=== PATIENT | female | born 1990 | race Caucasian/White ===

== ENCOUNTER → 2018-04-06 09:59 | Outpatient (CLI) | payer OTHER, SELFPAY ==
--- NOTE | 2018-04-06 10:01 | MR_ITS ---
MR head/brain wo con HISTORY: Severe headache more on the right ITS.REASON: migraine ORDERING PHYSICIAN: Derrick Mattson PATIENT AGE: 28 years Comparison: 07/01/2015 TECHNIQUE: Standard multiplanar multiecho sequences are performed without contrast. FINDINGS: No midline shift, mass effect, intracranial hemorrhage, hydrocephalus, or acute infarction is evident. There is normal goff-white matter differentiation. No abnormal white matter signal intensity evident. The cerebellopontine angles, cerebellum, and brainstem are unremarkable. The pituitary, optic chiasm, and cerebellar tonsils have an unremarkable appearance. No sinus air-fluid level or mastoid effusion. No large aneurysm. Small aneurysms may not be detected with this technique may be better evaluated with MRA if clinically warranted. 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 IMPRESSION: Negative MRI of brain.
== END ==
PROVIDERS: Family Provider Family Medicine; PCP Physician Assistant; Visit Provider Nurse Practitioner Family
DX: G43.009 Migraine without aura, not intractable, without status migrainosus (principal)
CPT/HCPCS: 70551

== ENCOUNTER → 2018-11-18 16:18 | Outpatient (CLI) | payer BC, OTHER, SELFPAY ==
--- NOTE | 2018-11-18 16:19 | MM_ITS ---
MM Dig screening mamm BI w/CAD ORDERING PHYSICIAN : FELTON Philip PATIENT AGE: 28 years GENDER: Female COMPARISON: Only the previous studies available of 10/08/2017 kidney INDICATION: ITS.REASON: screening. No new complaints. Patient takes control pills. Positive family history: Mother with breast cancer age 40.... 2 sisters with breast cancer in her 30s. TECHNIQUE: Standard CC and MLO images were obtained. R2 CAD reviewed. FINDINGS: Slightly heterogeneous Moderately dense areas of breast tissue,. LEFT BREAST:There is slight relative increased density at superior breast on as well as area highlighted by CAD at the central breast but this is labeled X. Most likely summation shadow of tissue but does show a focal area of density measuring roughly 18 mm size. However in this patient with strong family history to be cautious with suggest follow-up spot views & ultrasound left breast, since this area appears slightly denser & more evident been previous. Could merely be projectional... RIGHT BREAST:No prominent new areas of concern. Only question subtle ovoid 9 mm density at the right retroareolar region cc view. Suspect more likely summation shadow but again because of the patient's strong family history would suggest including spot view cc right breast, along with and MLO view of the retroareolar region and superior right breast. Also suggest ultrasound since it is a useful compliment/augment mammography in areas of denser breast. .. IMPRESSION: ......... 1. Although no prominent/suspicious areas are identified... There are some subtle areas of density bilaterally which would benefit from additional views & bilateral breast ultrasound, to be cautious-particularly in view of the patient's strong family history LEFT BREAST. Area of slightly greater density at superior surface central breast labeled X, may be summation shadow but would benefit from additional views and ultrasound RIGHT BREAST no suspicious findings, only question a vague 9 mm ovoid area retroareolar region. More likely summation shadow BI-RADS Category: 0 Need Additional Imaging Evaluation RECOMMENDED FOLLOW-UP: IMM - IMMEDIATE FOLLOW-UP RECOMMENDED Bilateral spot views. Bilateral breast ultrasound (A letter has been sent to the patient regarding results of the study.)
== END ==
PROVIDERS: PCP Physician Assistant; Visit Provider Physician Assistant
DX: Z12.31 Encounter for screening mammogram for malignant neoplasm of breast (principal)
CPT/HCPCS: 77067

== ENCOUNTER → 2019-06-28 14:55 | Outpatient (CLI) | payer BC, SELFPAY ==
--- NOTE | 2019-06-28 14:56 | MM_ITS ---
PROCEDURE: MM DIG MAMM BI DX W/CAD CLINICAL INDICATION: abn follow-up possible asymmetric nodular density left breast mamm from Nov COMPARISON: [facility] DIG MAMM-SCREEN CUCO W/CAD from 10/08/2017 [facility] MM Dig screening mamm BI w/CAD from 11/18/2018 US BREAST RT COMPLETE from 06/28/2019 US BREAST LT COMPLETE from 06/28/2019 TECHNIQUE: Standard CC and MLO images were obtained. R2 CAD reviewed. FINDINGS: There is a diffusely dense and heterogenic parenchymal pattern lessening the sensitivity of mammography. There is a subtle area of architectural distortion and/or nodular density central portion of the left breast at approximately the 12 o'clock position approximately 3 cm deep to the nipple. It does not press out on spot compression MLO and CC views. It does appear to be somewhat less prominent on the 90 degree lateral view. Ultrasound examination performed the same date showed no definite ultrasound correlation. However in view the patient's strong family history of breast cancer I believe biopsy is indicated IMPRESSION: Dense echogenic parenchymal pattern with possible focal area of architectural distortion central portion left breast BI-RAD Category: 4 Suspicious Abnormality - Biopsy Considered FOLLOW-UP: BIO Biopsy Recommended (A letter has been sent to the patient regarding results of the study.) Dictated by: Dr. Leroy Glover MD 07/18/2019 20:24 Signed by: <Electronically signed by Dr. Leroy Glover MD in [place]> 07/18/2019 20:24
--- NOTE | 2019-06-28 15:44 | US_ITS ---
PROCEDURE: US BREAST RT COMPLETE CLINICAL INDICATION: abn mamm from Nov COMPARISON: No exams were available for comparison FINDINGS: Diffusely heterogenic echogenicity seen throughout the breast. There is no suspicious cystic or solid mass identified and there are no findings to suggest architectural distortion. There is a normal appearing node in the axilla. IMPRESSION: Negative ultrasound right breast Dictated by: Dr. Leroy Glover MD 07/18/2019 20:30 Signed by: <Electronically signed by Dr. Leroy Glover MD in [place]> 07/18/2019 20:30
--- NOTE | 2019-06-28 15:44 | US_ITS ---
PROCEDURE: US BREAST LT COMPLETE CLINICAL INDICATION: abn mamm from Nov COMPARISON: US BREAST RT COMPLETE from 06/28/2019 FINDINGS: Diffuse heterogenic echogenicity seen throughout the areas scanned in the breast. There is no definite suspicious cystic or solid mass and there are no definite findings to suggest architectural distortion. However in view of the fact that the asymmetric density left breast is not press out on the spot compression views and in view of the patient's strong family history of bleed biopsy is indicated IMPRESSION: Essentially negative targeted ultrasound left breast however for the reasons mentioned above I believe biopsy is indicated. Dictated by: Dr. Leroy Glover MD 07/18/2019 20:27 Signed by: <Electronically signed by Dr. Leroy Glover MD in [place]> 07/18/2019 20:27
== END ==
PROVIDERS: PCP Physician Assistant; Visit Provider Physician Assistant
DX: R92.8 Other abnormal and inconclusive findings on diagnostic imaging of breast (principal)
CPT/HCPCS: 76641; 77066

== ENCOUNTER → 2019-08-02 08:21 | Outpatient (CLI) | payer BC, SELFPAY | PROVIDERS: PCP Emergency Medicine; Visit Provider Emergency Medicine | DX: R92.8 Other abnormal and inconclusive findings on diagnostic imaging of breast (principal) ==

== ENCOUNTER → 2020-02-14 08:47 | Outpatient (CLI) | payer BC, SELFPAY ==
--- NOTE | 2020-02-14 08:47 | MM_ITS ---
PROCEDURE: MM DIG SCREENING MAMM BI W/CAD Digital Breast Tomosynthesis Included CLINICAL INDICATION: screening COMPARISON: [facility] DIG MAMM-SCREEN CUCO W/CAD from 10/08/2017 [facility] MM Dig screening mamm BI w/CAD from 11/18/2018 MM DIG MAMM BI DX W/CAD from 06/28/2019 TECHNIQUE: Standard CC and MLO images and 3D Tomosynthesis was obtained. R2 CAD reviewed. FINDINGS: History is given that the patient was scheduled for stereotactic breast biopsy of an area of nodularity in the left breast on previous mammogram. She returned 08/02/2019 for stereotactic biopsy and the nodule in question was not reproduced with additional imaging, and the stereotactic biopsy was therefore canceled. On today's exam breasts are dense. A new focal area of asymmetrical nodular density 1.2 x 1.5 centimeters is seen in the retroareolar region of the left breast on the MLO views only. It is 3.7 centimeters deep to the anterior skin surface and lies just superior to the nipple line in the general vicinity of previously described asymmetrical nodular density. MLO Tomosynthesis images 8-31 show the density. This is not confirmed with certainty on the CC views. It is possible dense tissue in the lateral breast obscures a lesion. The appearance of the right breast is stable. Additional cone compression views of the left breast in the MLO and CC projections and 90 degree medial to lateral images of left breast are recommended with ultrasound targeted to the mammographic abnormality. IMPRESSION: BI-RAD Category: 0 Need Additional Imaging Evaluation (A letter has been sent to the patient regarding results of the study.) Dictated by: Anders Dial 02/14/2020 10:03 Electronically signed by Anders Dial in [place] 02/14/2020 10:03
== END ==
PROVIDERS: PCP Physician Assistant; Visit Provider Nurse Practitioner Family
DX: Z12.31 Encounter for screening mammogram for malignant neoplasm of breast (principal)
CPT/HCPCS: 77063; 77067

== ENCOUNTER → 2020-02-29 14:13 | Outpatient (CLI) | payer BC, SELFPAY ==
--- NOTE | 2020-02-29 14:13 | US_ITS ---
PROCEDURE: MM DIG MAMM DX UNILAT LT CAD Digital Breast Tomosynthesis Included CLINICAL INDICATION: abnormal mamm, follow-up abnormal mammogram COMPARISON: [facility] MM Dig screening mamm BI w/CAD from 11/18/2018 US BREAST LT COMPLETE from 06/28/2019 MM DIG MAMM BI DX W/CAD from 06/28/2019 MM DIG SCREENING MAMM BI W/CAD from 02/14/2020 US BREAST LT COMPLETE from 02/29/2020 TECHNIQUE: Spot compression views along with breast FINDINGS: There is average fibroglandular tissue. The area of asymmetric density does appear to compress out is fibroglandular tissue. No malignant appearing mass or malignant-appearing microcalcification. Left breast ultrasound: Small cyst is present 2 o'clock at 4 mm. No solid suspicious lesions evident. IMPRESSION: Asymmetric density is felt to be due to overlapping fibroglandular tissue. BI-RAD Category: 3 Probably Benign Finding Short Term Follow-up FOLLOW-UP: 6M 6Month Follow-up (A letter has been sent to the patient regarding results of the study.) Dictated by: Russell Mendoza MD 02/29/2020 15:41 Electronically signed by Russell Mendoza MD in [place] 02/29/2020 15:41
== END ==
PROVIDERS: PCP Physician Assistant; Visit Provider Nurse Practitioner Family
DX: R92.8 Other abnormal and inconclusive findings on diagnostic imaging of breast (principal)
CPT/HCPCS: 76641; 77061; 77065; G0279

== ENCOUNTER 2020-11-27 09:28 | Emergency (ER) | payer BC, SELFPAY ==
[2020-11-27 09:28] VITALS: BP 136/64; PULSE 91; RESP 16; TEMP 37.2; O2SAT 98; BMI 27.3
--- NOTE | 2020-11-27 09:49 | HMH.EDUTC ---
[facility] [place] Disposition Clinical Impression: Viral upper respiratory illness, Encounter for laboratory testing for COVID-19 virus Disposition: Home, Self-Care Condition on Discharge: Good Instructions: Cough, DI for Cough -- Adult, DI for COVID-19 (Suspected or Confirmed ), Coronavirus Disease 2019, Preventing the Spread of Coronavirus Discharge Instructions Additional Instructions: *Monitor Temp, Over the counter Motrin or Tylenol as directed/as needed Tylenol every 4 hours and Motrin every 6 hours (as long as your family doctor has told you that you can take it) for fever or pain. and straight to ER if unable to lower temp less than 101.0 after medication given *Warm salt water gargles may help to soothe the throat *Throat Lozenges *Warm fluids like tea with honey may help to soothe the throat *Sleep elevated *Humidifier/Vaporizer *Bromfed may cause drowsiness. Know how it effects you (your child) before driving, caring for small child, or sending your child to school. Not other antihistamines/allergy medications while taking bromfed Your throat swab was sent for culture. Those results are typically sent to your primary care. Be sure to follow up in 2-3 days with your family doctor/primary care physician if no improvement so they can review those result and treat if necessary. If you don?t have a primary care doctor, I recommend you get one but in the mean time, you will have to return to a walk in clinic Follow up IMMEDIATELY for new or worsening symptoms or no Noticeable improvement over the next 48-72 hours. 911 for difficulty breathing or swallowing You were tested for today for COVID19 your test result should be back in the next 24-48 hours, you may call to the [facility] to see if your test results are back in the next 48 hours [phone] [facility] hours are 9am-9pm You was given a handout with instructions for Self Quarantine and Self isolation for while you wait on test results and what to do if they are positive If you are positive the Health Dept will be contacting you also Prescriptions: Brompheniramine/Pseudoephed/Dm [Bromfed Dm Cough Syrup] 5 - 10 ml PO Q46H PRN #150 ml PRN Reason: Cough Transmission Status: Pending to [id number] Referrals: Farhana Domingo PA [Primary Care Provider] - As needed Forms: Work/School Release Time of Disposition: 10:02 Medical Decision Making - Olman Inquiry Pt receiving controlled substance: No Olman was queried for this patient: No Vital Signs: 11/27/20 09:28 Temperature 98.9 F Temperature Source Oral Pulse Rate [Right] 91 H Respiratory Rate 16 Blood Pressure [Right Arm] 136/64 Blood Pressure Mean [Right Arm] 88 02 Sat by Pulse Oximetry 98 - Lab Data Lab results reviewed: Yes: I reviewed the patient's lab results. Lab Results 11/27/20 09:48: Strep Scn Rapid Clinic Negative Orders (Tests/Meds): ORDERS Category Date Time Status Covid-19 Nasal PCR Sendout P&C Stat Lab 11/27/20 09:48 Ordered Strep Screen Confirmation Stat Micro 11/27/20 09:48 Received [facility] [place] HPI - General Stated complaint: sore throat, cough Time Seen by Provider: 11/27/20 09:49 Description of Symptoms (Recalled from Triage Doc. by RN): pt request covid test pt c/o cough, CHRISTENSEN, sore throat, body aches HEENT Symptoms (Recalled from RN notes): Yes Resp Symptoms (Recalled from RN notes): Yes Skin Symptoms (Recalled from RN notes): No MS Symptoms (Recalled from RN notes): No Functional Status (Recalled from RN notes): wnl - History of Present Illness Provider Complaint: Patient states that she has been having cough, headache, body aches and runny nose State that she was around someone last week that tested positive for COVID States that now she is having symptoms and wanted to get tested - Related Data Previous Rx's Medication Instructions Recorded albuterol sulfate 90 mcg/actuation 2 puff INHALATION Q4-6H PRN #18 g 10/04/19 aerosol inhaler bupropion HCl 100 mg tablet,12
[2020-11-27 09:55] LABS: UTC Strep Screen (Rapid) Negative (Negative)
[2020-11-27 10:04] VITALS: BP 136/64; PULSE 91; RESP 16; TEMP 37.2; O2SAT 98
[2020-11-28 11:46] LABS: Covid-19 Nasal PCR Sendout P&C NEGATIVE
== END 2020-11-27 10:06 | disposition home or self-care (01) ==
PROVIDERS: Emergency Provider Nurse Practitioner; PCP Physician Assistant
DX: Z20.822 Contact with and (suspected) exposure to COVID-19 (principal); J06.9 Acute upper respiratory infection, unspecified; F41.8 Other specified anxiety disorders; Z88.0 Allergy status to penicillin; Z79.899 Other long term (current) drug therapy
CPT/HCPCS: 87880; 99202; G0463; U0004

== ENCOUNTER → 2021-06-05 13:56 | Outpatient (CLI) | payer BC, SELFPAY ==
--- NOTE | 2021-06-05 13:58 | MM_ITS ---
PROCEDURE INFORMATION: Exam: MG Screening 3D Mammography Exam date and time: 06/05/2021 1:58 PM Age: 31 years old Clinical indication: Encounter for screening mammogram for malignant neoplasm of breast. Strong family history of premenopausal breast carcinoma TECHNIQUE: Imaging protocol: Screening tomosynthesis and 2D mammography including computer-aided detection (CAD) when performed. COMPARISON: 1. MG MM DIG MAMM DX UNILAT LT CAD 02/29/2020 3:16 PM 2. MG MM DIG SCREENING MAMM BI W/CAD 02/14/2020 8:54 AM 3. MG MM DIG MAMM BI DX W/CAD 06/28/2019 3:27 PM FINDINGS: MAMMOGRAPHY: Breast composition: The breasts are heterogeneously dense, which may obscure small masses. Mass: No new suspicious masses. Architectural distortion: No suspicious distortion. Calcifications: No suspicious calcifications. Asymmetric density: None. Skin thickening: None. Axillary adenopathy: None. IMPRESSION: No mammographic evidence of malignancy. Annual screening is recommended unless otherwise clinically indicated. Given the reported risk factors coupled with the patient's breast density, a breast cancer risk assessment may prove useful for further evaluation. ASSESSMENT: BI-RADS Category 1: Negative
== END ==
PROVIDERS: PCP Physician Assistant; Visit Provider Nurse Practitioner Family
DX: Z12.31 Encounter for screening mammogram for malignant neoplasm of breast (principal)
CPT/HCPCS: 77063; 77067

== ENCOUNTER → 2021-06-26 12:43 | Outpatient (CLI) | payer BC, SELFPAY ==
--- NOTE | 2021-06-26 12:47 | US_ITS ---
PROCEDURE: US EXTREMITY LT LIMITED CLINICAL INDICATION: axillary mass COMPARISON: No exams were available for comparison FINDINGS: There are multiple small nodes present in the left axilla measuring up to 3 x 0.9 cm. No cystic mass apparent. No other abnormalities evident. IMPRESSION: Mild left axillary adenopathy Dictated by: Russell Mendoza MD 06/26/2021 16:48 Russell Mendoza MD in [place] 06/26/2021 16:48
== END ==
PROVIDERS: PCP Physician Assistant; Visit Provider Surgery
DX: N63.0 Unspecified lump in unspecified breast (principal)
CPT/HCPCS: 76882

== ENCOUNTER → 2021-12-02 09:18 | Outpatient (CLI) | payer BC, SELFPAY | PROVIDERS: Visit Provider Nurse Practitioner | DX: U07.1 COVID-19 (principal) | CPT/HCPCS: C9803; U0003; U0005 ==

== ENCOUNTER 2022-02-17 10:28 | Emergency (ER) | payer BC, SELFPAY ==
[2022-02-17 11:04] VITALS: BP 116/65; PULSE 91; RESP 19; TEMP 36.9; O2SAT 99; BMI 30.9
--- NOTE | 2022-02-17 11:04 | HMH.EDUTC ---
[facility] [place] Disposition Clinical Impression: Viral syndrome Disposition: Home, Self-Care Condition on Discharge: Good Instructions: DI for Viral Syndrome Additional Instructions: Drink plenty of fluids. Take tylenol or ibuprofen for pain or fever. Take the medications as directed. Follow up with your regular doctor. GO TO THE ER FOR ANY WORSENING SYMPTOMS Prescriptions: Brompheniramine/Pseudoephed/Dm [Bromfed Dm Cough Syrup] 5 ml PO Q6HP PRN #240 ml PRN Reason: Cough Transmission Status: Received by [id number] methylPREDNISolone [Medrol] 4 mg PO DIRECTED 6 Days #21 packet Transmission Status: Received by [id number] Referrals: Farhana Domingo PA [Primary Care Provider] - Forms: Work/School Release Time of Disposition: 12:08 Medical Decision Making - Medical Records Medical records reviewed: No: I reviewed the patient's medical records. - Olman Inquiry Pt receiving controlled substance: No Vital Signs: 02/17/22 11:04 02/17/22 12:15 Temperature 98.5 F 98.5 F Temperature Source Oral Pulse Rate 91 H Pulse Rate [Left] 91 H Respiratory Rate 19 19 Blood Pressure 116/65 Blood Pressure [Right Arm] 116/65 Blood Pressure Mean [Right Arm] 82 02 Sat by Pulse Oximetry 99 - Lab Data Lab results reviewed: Yes: I reviewed the patient's lab results. Lab Results 02/17/22 11:18: Influenza Type A Ag Negative, Influenza Type B Ag Negative [facility] [place] HPI - General Stated complaint: cough, runny nose, head congestion, h/a Time Seen by Provider: 02/17/22 11:04 - History of Present Illness Provider Complaint: She states that she has been feeling bad since yesterday. He has had chills, body aches, sore throat, and a cough. She was at work today but she was sent home because she is sick. Her son was diagnosed with influenza last week. - Related Data Previous Rx's Medication Instructions Recorded Brompheniramine/Pseudoephed/Dm 5 ml PO Q6HP PRN #240 ml 02/17/22 [Bromfed Dm Cough Syrup] methylPREDNISolone [Medrol] 4 mg PO DIRECTED 6 Days #21 02/17/22 packet Allergies Allergy/AdvReac Type Severity Reaction Status Date / Time escitalopram [From Lexapro] Allergy Mild Skin Verified 06/30/21 13:08 Itching From Penicillin G Sodium Allergy Unknown Uncoded 06/30/21 13:08 Penicillin Allergy Unknown Uncoded 06/30/21 13:08 [facility] History - Hepatitis A Screen Attestation statement:: This patient has been screened for Hepatitis A risk factors. I have reviewed the patient's past medical history: Yes Medical History: Reports:: Anxiety, Depression, Migraine Denies:: Diabetes Mellitus Type 2, Hyperlipidemia, Hypertension, Seizures Other Medical History: Reports: Other Comment: [place] Palsy,Trigeminal neuralgia, tremor Other Surgeries: Yes: Amputation: No Fractures: No - Social History Smoking Status: Never smoker Alcohol Intake: never Alcohol Intake Frequency:: other Substance Use Type: denies use Occupational Status: employed Housing: house Household Members: spouse, children - Psychiatric History Pschychiatric History:: Reports:: Anxiety, Depression Family Hx:: Cancer, Diabetes, Heart Attack, Thyroid Disorder, Stroke, Hypertension, Hyperlipidemia, Asthma ROS Obtained: Yes All systems reviewed & no additional complaints - Constitutional Constitutional: Reports as per HPI - Eyes Eyes: Denies eye discharge - ENT Ears, Nose, Mouth, and Throat: Reports as per HPI - Cardiovascular Cardiovascular: Denies chest pain - Respiratory Respiratory: Reports chest congestion, Reports cough, Denies dyspnea, Denies stridor, Denies wheezing Physical Exam - General General appearance: alert, in no apparent distress - Head Head exam: atraumatic, normocephalic, normal inspection - Eye Eye exam: Present: normal appearance, PERRL, EOMI - ENT ENT exam: Present: normal exam, normal oropharynx, mucous membranes moist, TM's normal lester
[2022-02-17 11:18] LABS: UTC Influenza A Antigen Negative (Negative)
[2022-02-17 11:19] LABS: UTC Influenza B Antigen Negative (Negative)
[2022-02-17 12:15] VITALS: BP 116/65; PULSE 91; RESP 19; TEMP 36.9
== END 2022-02-17 12:17 | disposition home or self-care (01) ==
LOC: UTC 10:30 → ER 11:36 → UTC 11:39
PROVIDERS: Emergency Provider Nurse Practitioner Family; PCP Physician Assistant
DX: B34.9 Viral infection, unspecified (principal); J02.9 Acute pharyngitis, unspecified; Z88.0 Allergy status to penicillin
CPT/HCPCS: 87804; 99212; G0463

== ENCOUNTER → 2022-02-20 14:07 | Outpatient (CLI) | payer BC, SELFPAY ==
[2022-02-20 17:21] LABS: Basophils # 0.1 K/mm3 (0-0.2); Basophils % 1.6 % (0.1-2.0); Eosinophils # 0.2 K/mm3 (0.0-0.4); Eosinophils % 6.9 % (0.1-12.0); Hematocrit 45.9 % (37.0-47.0); Hemoglobin 15.1 g/dL (12.2-16.2); Lymphocytes # 1.6 K/mm3 (0.7-4.5); Lymphocytes % 56.4 % (10-50); Mean Platelet Volume 9.9 fl (7.4-10.4); Monocytes # 0.3 K/mm3 (0.1-1.0); Monocytes % 8.9 % (1.7-9.3); Neutrophils # 0.7 K/mm3 (1.8-7.8); Neutrophils % 26.1 % (37.0-80.0); Platelet Count 171 K/mm3 (142-424); Red Blood Count 4.88 M/mm3 (4.20-5.40); Red Cell Distribution Width 12.9 % (11.5-17.5); White Blood Count 2.8 K/mm3 (4.8-10.8)
[2022-02-20 17:22] LABS: MANUAL DIFFERENTIAL MANUAL DIFFERENTIAL (MANUAL DIFF)
[2022-02-20 17:25] LABS: Alanine Aminotransferase 19 U/L (12-78); Albumin Level 4.3 g/dl (3.5-5.0); Albumin/Globulin Ratio 1.7 (1.1-1.8); Alkaline Phosphatase 50 U/L (38-126); Anion Gap 10.6 mEq/L (5-15); Aspartate Amino Transferase 29 U/L (14-36); Bilirubin,Total 0.4 mg/dl (0.2-1.3); Blood Urea Nitrogen 12 mg/dl (7-17); Calcium 8.6 mg/dl (8.4-10.2); Carbon Dioxide 30 mmol/L (22.0-30.0); Chloride 102 mmol/L (98-107); Chol/HDL Ratio 6.2 (1-3.5); Cholesterol 162 mg/dl (140-200); Estimated Glomerular Filt Rate 115 ml/min (>60); GFR (African American) 139 ML/MIN (>60); Globulin 2.6 g/dL (1.3-3.2); Glucose 85 mg/dl (74-100); HDL Cholesterol 26 mg/dl (40-60); Potassium 3.6 mmoL/L (3.5-5.1); Sodium 139 mmol/L (136-145); Total Protein,Serum 6.9 g/dl (6.3-8.2); Triglycerides 116 mg/dl (30-150); VLDL Cholesterol 23 mg/dL (0-40)
[2022-02-20 17:32] LABS: Hemoglobin A1C 5.1 % (4.0-6.0)
[2022-02-20 17:36] LABS: Direct LDL Cholesterol 99.53 mg/dL (100-129)
[2022-02-20 18:44] LABS: Eosinophils % 3 % (0-3); Lymphocytes % 66 % (10-50); Monocytes % 1 % (2-9); Neutrophils % 26 % (42-76); Total Cells Counted 100
[2022-02-20 18:45] LABS: Platelet Estimate Normal; RBC Morphology Normal
[2022-02-23 12:16] LABS: C-Peptide 4.8 ng/mL (1.1-4.4)
== END ==
PROVIDERS: Visit Provider Nurse Practitioner Family
DX: Z01.01 Encounter for examination of eyes and vision with abnormal findings (principal); I10 Essential (primary) hypertension
CPT/HCPCS: 80053; 80061; 83036; 84681; 85007; 85025

== ENCOUNTER 2022-03-01 12:23 | Emergency (ER) | payer BC, SELFPAY ==
[2022-03-01 12:30] VITALS: BP 141/87; PULSE 78; RESP 18; TEMP 36.6; O2SAT 98; BMI 27.8
--- NOTE | 2022-03-01 12:36 | HMH.EDUTC ---
[facility] [place] Clinical Impression: Paronychia of finger Qualifiers: Laterality: left Qualified Code(s): L03.012 - Cellulitis of left finger Disposition: Home, Self-Care Condition on Discharge: Good Instructions: DI for Paronychia Additional Instructions: soak in Epsom salt if worsen return or be seen in ed Prescriptions: Sulfamethoxazole/Trimethoprim [Bactrim DS tablet] 1 each PO BID 10 Days #20 tab Transmission Status: Pending to [id number] Mupirocin [Bactroban 2% Ointment 22gm tube] 1 applicatio TP BID 14 Days #22 gm Transmission Status: Pending to [id number] Referrals: Farhana Domingo PA [Primary Care Provider] - Forms: Work/School Release Time of Disposition: 12:44 Medical Decision Making - Olman Inquiry Pt receiving controlled substance: No [facility] [place] HPI - General Chief complaint: [facility] Stated complaint: left hand middle finger soreness Time Seen by Provider: 03/01/22 12:37 Mode of Arrival: Ambulatory Source of Information: Patient Limitations: No Limitations - History of Present Illness Provider Complaint: 31 yr old female presents for left middle finger swollen and painful. 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 on the side of finger yesterday no swelling and painfl - Related Data Previous Rx's Medication Instructions Recorded Mupirocin [Bactroban 2% Ointment 1 applicatio TP BID 14 Days #22 gm 03/01/22 22gm tube] Sulfamethoxazole/Trimethoprim 1 each PO BID 10 Days #20 tab 03/01/22 [Bactrim DS tablet] Allergies Allergy/AdvReac Type Severity Reaction Status Date / Time escitalopram [From Lexapro] Allergy Mild Skin Verified 02/20/22 15:23 Itching From Penicillin G Sodium Allergy Unknown Uncoded 02/20/22 15:23 Penicillin Allergy Unknown Uncoded 02/20/22 15:23 [facility] History - Hepatitis A Screen Attestation statement:: This patient has been screened for Hepatitis A risk factors. I have reviewed the patient's past medical history: Yes Medical History: Reports:: Anxiety, Depression, Migraine Denies:: Diabetes Mellitus Type 2, Hyperlipidemia, Hypertension, Seizures Other Medical History: Reports: Other Comment: [place] Palsy,Trigeminal neuralgia, tremor Other Surgeries: Yes: Amputation: No Fractures: No - Social History Smoking Status: Never smoker Alcohol Intake: never Alcohol Intake Frequency:: other Substance Use Type: denies use Occupational Status: employed Housing: house Household Members: spouse, children - Psychiatric History Pschychiatric History:: Reports:: Anxiety, Depression Family Hx:: Cancer, Diabetes, Heart Attack, Thyroid Disorder, Stroke, Hypertension, Hyperlipidemia, Asthma ROS Obtained: Yes Systems reviewed as appropriate & no additional complaints - Constitutional Constitutional: Reports system reviewed and no additional complaints, except as docu, Denies fever(s) - Eyes Eyes: Reports system reviewed and no additional complaints, except as docu, Denies dry eyes - ENT Ears, Nose, Mouth, and Throat: Reports system reviewed and no additional complaints, except as docu, Denies dizziness - Cardiovascular Cardiovascular: Reports system reviewed and no additional complaints, except as docu, Denies chest pain - Respiratory Respiratory: Reports system reviewed and no additional complaints, except as docu, Denies chest congestion - Gastrointestinal Gastrointestingal: Reports: system reviewed and no additional complaints, except as docu. Denies: abdominal pain - Musculoskeletal Musculoskeletal: Reports system reviewed and no additional complaints, except as docu, Reports as per HPI, Denies joint pain - Integumentary/Breasts Skin/Breast: Reports system reviewed and no additional complaints, except as docu, Reports wounds - Neurologic Neurologic: Reports system reviewed and no additional complaints, except as docu, Denies dizziness - Endocrine Endocrine: Reports sys
[2022-03-01 12:41] VITALS: BP 141/87; PULSE 78; RESP 18; TEMP 36.6; O2SAT 98
== END 2022-03-01 12:47 | disposition home or self-care (01) ==
PROVIDERS: Emergency Provider Nurse Practitioner Family; PCP Physician Assistant
DX: L03.012 Cellulitis of left finger (principal); R25.1 Tremor, unspecified; G50.0 Trigeminal neuralgia; G43.909 Migraine, unspecified, not intractable, without status migrainosus; F32.A Depression, unspecified; F41.9 Anxiety disorder, unspecified; Z86.69 Personal history of other diseases of the nervous system and sense organs; Z88.0 Allergy status to penicillin; Z88.8 Allergy status to other drugs, medicaments and biological substances; Z82.49 Family history of ischemic heart disease and other diseases of the circulatory system; Z80.9 Family history of malignant neoplasm, unspecified; Z83.3 Family history of diabetes mellitus; Z83.438 Family history of other disorder of lipoprotein metabolism and other lipidemia; Z83.49 Family history of other endocrine, nutritional and metabolic diseases
CPT/HCPCS: 99213; G0463

== ENCOUNTER 2022-03-13 18:24 | Emergency (ER) | payer BC, SELFPAY ==
[2022-03-13 18:25] VITALS: BP 131/76; PULSE 81; RESP 17; TEMP 36.8; O2SAT 98; BMI 31.8
[2022-03-13 18:38] VITALS: BP 131/76; PULSE 81; RESP 17; TEMP 36.8; O2SAT 98
--- NOTE | 2022-03-13 19:10 | HMH.EDUTC ---
[facility] [place] Impression: Finger problem Disposition: Home, Self-Care Condition on Discharge: Good Instructions: Ibuprofen Additional Instructions: Watch finger for signs of infection including but not limited too swelling, redness, warmth or drainage if seen follow up immediately Wear splint and see if that helps with discomfort Return if needed Straight to ER if any life threatening symptoms Follow up with Family Doctor if needed Referrals: Farhana Domingo PA [Primary Care Provider] - As needed Time of Disposition: 19:37 Medical Decision Making - Olman Inquiry Pt receiving controlled substance: No Olman was queried for this patient: No Vital Signs: 03/13/22 18:25 03/13/22 18:38 Temperature 98.3 F 98.3 F Temperature Source Oral Pulse Rate 81 Pulse Rate [Right Brachial] 81 Respiratory Rate 17 17 Blood Pressure 131/76 Blood Pressure [Right Arm] 131/76 Blood Pressure Mean [Right Arm] 94 Blood Pressure Source [Right Arm] Automatic Cuff Blood Pressure Position [Right Arm] Sitting 02 Sat by Pulse Oximetry 98 Oxygen Delivery Method Room Air Orders (Tests/Meds): ORDERS Category Date Time Status XR hand LT min 3V Stat Exams 03/13/22 19:12 Taken - Radiology Data #1 Image(s): Hand Image Reviewed: Yes I reviewed the patient's radiology image No FB noted no acute finding [facility] [place] - General Stated complaint: AO 02/21 injured left middle finger Time Seen by Provider: 03/13/22 19:11 Mode of Arrival: Ambulatory Source of Information: Patient Limitations: No Limitations Description of Symptoms (Recalled from Triage Doc. by RN): PATIENT STATES SHE SEEN IN [facility] BEFORE AND WAS PUT ON BACTRIM FOR PUNCTURE WOUND TO LEFT MIDDLE FINGER. 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 not sure if something may be in there or if she may have pulled a muscle or something in her middle finger - Related Data Previous Rx's Medication Instructions Recorded Mupirocin [Bactroban 2% Ointment 1 applicatio TP BID 14 Days #22 gm 03/01/22 22gm tube] Sulfamethoxazole/Trimethoprim 1 each PO BID 10 Days #20 tab 03/01/22 [Bactrim DS tablet] Allergies Allergy/AdvReac Type Severity Reaction Status Date / Time escitalopram [From Lexapro] Allergy Mild Skin Verified 02/20/22 15:23 Itching Penicillins Allergy Verified 03/01/22 12:41 - Worker's Comp Is this a Worker's Comp case?: No [facility] History - Hepatitis A Screen Attestation statement:: This patient has been screened for Hepatitis A risk factors. I have reviewed the patient's past medical history: Yes Medical History: Reports:: Anxiety, Depression, Migraine Denies:: Diabetes Mellitus Type 2, Hyperlipidemia, Hypertension, Seizures Other Medical History: Reports: Other Comment: Jackson Palsy,Trigeminal neuralgia, tremor Other Surgeries: Yes: Amputation: No Fractures: No - Social History Smoking Status: Never smoker Alcohol Intake: never Alcohol Intake Frequency:: other Substance Use Type: denies use Occupational Status: employed Housing: house Household Members: spouse, children - Psychiatric History Pschychiatric History:: Reports:: Anxiety, Depression Family Hx:: Cancer, Diabetes, Heart Attack, Thyroid Disorder, Stroke, Hypertension, Hyperlipidemia, Asthma ROS Obtained: Yes All systems reviewed & no additional complaints, Yes Systems reviewed as appropriate & no additional comp
--- NOTE | 2022-03-13 19:12 | XR_ITS ---
PROCEDURE INFORMATION: Exam: XR Left Hand Exam date and time: 03/13/2022 7:15 PM Age: 31 years old Clinical indication: Injury or trauma; Other: Cleaning brush in landscape; Puncture; Left; Injury details: Pain in middle finger after working in brush ? foreign body? ? ; Additional info: Possible fb in finger TECHNIQUE: Imaging protocol: XR Left hand. Views: 3 or more views. COMPARISON: US EXTREMITY LT LIMITED 06/26/2021 1:17 PM FINDINGS: Bones/joints: No acute fracture or dislocation. Lateral series 3 shows slight cortical irregularity along the palmar surface of the base of the 2nd distal phalanx which could be developmental or old healed trauma, but no acute fracture line seen. There are no lytic/destructive skeletal lesions seen. No significant arthritic deformities. Soft tissues: No radiopaque foreign bodies. No pathologic soft tissue calcification. Mild soft tissue swelling. No soft tissue emphysema. IMPRESSION: 1. No acute fracture or dislocation. 2. No findings of osteomyelitis or septic arthritis. 3. Soft tissue swelling. No radiopaque foreign bodies or soft tissue emphysema seen. 4. Additional nonemergency and chronic findings as above.
== END 2022-03-13 20:20 | disposition home or self-care (01) ==
PROVIDERS: Emergency Provider Nurse Practitioner; PCP Physician Assistant
DX: R22.32 Localized swelling, mass and lump, left upper limb (principal); G43.709 Chronic migraine without aura, not intractable, without status migrainosus; F41.8 Other specified anxiety disorders
CPT/HCPCS: 73130; 99212; G0463

== ENCOUNTER → 2022-07-13 16:52 | Outpatient (CLI) | payer BC, SELFPAY ==
--- NOTE | 2022-07-13 16:53 | MM_ITS ---
PROCEDURE INFORMATION: Exam: MG Bilateral Screening 3D Mammography Exam date and time: 07/13/2022 4:47 PM Age: 32 years old Clinical indication: Concern for palpable and painful lump in the left upper outer breast. Her maternal grandmother had breast cancer and 2 sisters had breast cancer in her 30s. TECHNIQUE: Imaging protocol: Bilateral Screening tomosynthesis and 2D mammography including computer-aided detection (CAD) when performed. COMPARISON: 1. MG MM DIG SCREENING MAMM BI W/CAD 06/05/2021 2:21 PM 2. MG MM DIG MAMM DX UNILAT LT CAD 02/29/2020 3:16 PM 3. MG MM DIG SCREENING MAMM BI W/CAD 02/14/2020 8:54 AM 4. MG MM DIG MAMM BI DX W/CAD 06/28/2019 3:27 PM FINDINGS: MAMMOGRAPHY: Breast composition: The breasts are heterogeneously dense, which may obscure small masses. Mass: None. Architectural distortion: None. Calcifications: No suspicious calcifications. Asymmetric density: None. Skin thickening: None. Axillary adenopathy: None. Other: Triangular marker in the upper left breast, posterior 3rd - only included in the MLO projection, with no related mammographic findings. IMPRESSION: With history of palpable lump, patient will be recalled for left diagnostic spot compression in MLO and XCCL with a triangular skin marker placed at the area of clinical concern, as well as left breast ultrasound. Further evaluation of a palpable abnormality should be based on clinical grounds regardless of radiographic findings or lack thereof. Given the reported risk factors coupled with the patient's breast density, a breast cancer risk assessment may prove useful for further evaluation. No mammographic evidence of malignancy. ASSESSMENT: BI-RADS Category 0: Incomplete- Need Additional Imaging Evaluation and/or Prior Mammograms for Comparison
== END ==
PROVIDERS: PCP Nurse Practitioner Family; Visit Provider Nurse Practitioner Family
DX: Z12.31 Encounter for screening mammogram for malignant neoplasm of breast (principal)
CPT/HCPCS: 77063; 77067

== ENCOUNTER → 2022-09-03 07:38 | Outpatient (CLI) | payer BC, SELFPAY ==
--- NOTE | 2022-09-03 | US_ITS ---
FINAL REPORT CLINICAL HISTORY: palpable left breast nodule FINDINGS: LEFT BREAST ULTRASOUND, COMPLETE FINDINGS: Small cyst are identified in the left upper outer quadrant measuring up to 4 and 5 mm respectively having a benign appearance. There is also a small complex mildly septated retroareolar cyst measuring up to 3 mm. No solid mass lesion is seen. There is no lesion to account for palpable abnormality left breast. Attention to the left axilla shows normal-appearing lymph nodes. IMPRESSION: No findings suspicious for malignancy BI-RADS 2: Benign RECOMMENDATION: 1. Annual screening mammography 2. Should palpable abnormality persist, surgical consultation may be considered despite negative imaging findings Authenticated and ERN
--- NOTE | 2022-09-03 07:50 | MM_ITS ---
PROCEDURE INFORMATION: Exam: MG Left Diagnostic Breast Tomosynthesis Exam date and time: 09/03/2022 8:45 AM Age: 32 years old Clinical indication: Palpable Lt breast nodule, marker placed on area of tenderness and spot views done, PT nor tech could feel anything today TECHNIQUE: Imaging protocol: Left Diagnostic tomosynthesis and 2D mammography including computer-aided detection (CAD) when performed. Unilateral or bilateral exam. COMPARISON: 1. MG MM DIG SCREENING MAMM BI W/CAD 07/13/2022 4:47 PM 2. MG MM DIG SCREENING MAMM BI W/CAD 06/05/2021 2:21 PM FINDINGS: MAMMOGRAPHY: Digital diagnostic spot compression views of the posterior third of the left upper outer quadrant where the patient reports a palpable abnormality demonstrates predominantly adipose tissue. IMPRESSION: Patient to return for left breast ultrasound for full evaluation of the patient's complaint of a palpable abnormality ASSESSMENT: BI-RADS Category 0: Incomplete- Need Additional Imaging Evaluation and/or Prior Mammograms for Comparison
== END ==
LOC: RAD 07:38
PROVIDERS: PCP Nurse Practitioner Family; Visit Provider Nurse Practitioner Family
DX: N63.20 Unspecified lump in the left breast, unspecified quadrant (principal)
CPT/HCPCS: 76641; 77061; 77065; G0279

== ENCOUNTER 2023-02-21 12:00 | Emergency (ER) | payer BC, SELFPAY ==
--- NOTE | 2023-02-21 12:14 | EXP.UTC ---
Discharge Plan Disposition Patient Disposition: Home, Self-Care Condition: Good Prescriptions Prescriptions: New methylprednisolone 4 mg Tablets,Dose Pack 4 mg PO DIRECTED Qty: 21 0RF azithromycin [Zithromax] 250 mg tablet 250 mg PO UD DOSE PK Qty: 6 0RF Rx Instructions: Take two (2) tablets today, then one (1) tablet days #2 thru #5 No Action Vraylar 1.5 mg capsule 1.5 mg PO DAILY Qty: 30 2RF triamcinolone acetonide 0.1 % cream 1 applic topical BID Qty: 30 1RF Vraylar 1.5 mg capsule 1.5 mg PO DAILY Label Comments: TAKE 1 CAPSULE BY MOUTH ONCE DAILY Referrals Follow up/Referrals: José Caballero APRN [Primary Care Provider] - See instructions Activity Restrictions/Add. Instructions Additional Instructions/Restrictions: Drink plenty of fluids. Take tylenol or ibuprofen for pain or fever. Take the medications as directed. Follow up with your regular doctor. GO TO THE ER FOR ANY WORSENING SYMPTOMS Clinical Impressions Clinical Impression: Otitis media, Sinusitis Stand Alone Forms Stand Alone Forms: Work/School Release Instructions Patient Instructions: Middle Ear Infection, DI for Sinusitis Discharge ED Provider: Edmund Ortez [facility] General Stated complaint: cough, congestion, sore throat Time Seen by Provider: 02/21/23 12:14 History of Present Illness Provider Complaint: She states that for the past 2 days she has had sinus congestion, bilateral ear pain, chest congestion and a cough. Related Data Home Medications Medication Instructions Recorded Confirmed cariprazine 1.5 mg capsule 1.5 mg PO DAILY . 02/21/23 02/21/23 (Vraylar) Previous Rx's Medication Instructions Recorded cariprazine 1.5 mg capsule 1.5 mg PO DAILY #30 caps 08/28/22 (Vraylar) triamcinolone acetonide 0.1 % 1 applic topical BID #30 grams 08/28/22 topical cream azithromycin 250 mg tablet 250 mg PO UD DOSE PK #6 tabs 02/21/23 (Zithromax) methylprednisolone 4 mg tablets in 4 mg PO DIRECTED #21 tabs 02/21/23 a dose pack Allergies Allergy/AdvReac Type Severity Reaction Status Date / Time escitalopram [From Lexapro] Allergy Mild Skin Verified 02/21/23 12:42 Itching Penicillins Allergy Verified 02/21/23 12:42 PFSH [facility] Disclaimer: The information contained in this section may have been updated after the patient was seen, as this information can be updated by other users. Social History Smoking Status: Never smoker second hand exposure: No alcohol intake: never counseling provided: none substance use type: denies use current occupational status: employed Travel in the last 8 weeks: None household members: spouse and children housing: house ROS Obtained: Yes All systems reviewed & no additional complaints except as documented Constitutional Constitutional: Reports chills and Reports fever(s) Eyes Eyes: Denies eye discharge ENT Ears, Nose, Mouth, and Throat: Reports as per HPI Cardiovascular Cardiovascular: Denies chest pain Respiratory Respiratory: Denies chest congestion and Reports cough Gastrointestinal Gastrointestingal: Reports nausea; Denies abdominal pain, constipation, cramping, diarrhea or vomiting Musculoskeletal Musculoskeletal: Denies arthralgias Integumentary/Breasts Skin/Breast: Denies rash Neurologic Neurologic: Denies paresthesias Physical Exam General General appearance: alert and in no apparent distress Head Head exam: atraumatic, normocephalic and normal inspection Eye Eye exam: Present normal appearance; Absent PERRL or EOMI ENT ENT exam: Present mucous membranes moist and normal external ear exam Expanded ENT Exam TM/Canal exam: Bilateral TM: erythema, bulging and effusion Nose exam: Absent sinus tenderness Nasal speculum exam: Bilateral: normal Mouth exam: Present normal external inspection and other; Absent drooling Teeth exam
[2023-02-21 12:15] VITALS: BP 108/80; PULSE 87; RESP 20; TEMP 37.4; O2SAT 100; BMI 28.8
[2023-02-21 12:32] LABS: UTC Strep Screen (Rapid) Negative (Negative)
[2023-02-21 13:06] VITALS: BP 108/80; PULSE 87; RESP 20; TEMP 37.4; O2SAT 100
== END 2023-02-21 13:06 | disposition home or self-care (01) ==
PROVIDERS: Emergency Provider Nurse Practitioner Family; PCP Nurse Practitioner Family
DX: H66.93 Otitis media, unspecified, bilateral (principal); J01.90 Acute sinusitis, unspecified
CPT/HCPCS: 87880; 99212; 99214; C9803; G0463; U0003; U0005

== ENCOUNTER → 2023-09-02 09:40 | Outpatient (CLI) | payer BC, SELFPAY ==
--- NOTE | 2023-09-02 09:42 | XR_ITS ---
FINAL REPORT CLINICAL HISTORY: foot pain FINDINGS: LEFT FOOT Three views of the left foot demonstrate no acute fracture or dislocation. The visualized joint spaces are normally aligned. There is a small plantar calcaneal spur. The soft tissues are unremarkable. IMPRESSION: No acute bony abnormality. Reviewed, Interpreted and Dictated by Cole Galdamez III, MD Transcribed by Nurys Coello Authenticated and [facility]
== END ==
PROVIDERS: PCP Nurse Practitioner Family; Visit Provider Orthopaedic Surgery
DX: M79.672 Pain in left foot (principal)
CPT/HCPCS: 73630

== ENCOUNTER 2023-10-29 15:59 | Outpatient (RCR) | payer BC, SELFPAY ==
--- NOTE | 2023-10-29 16:56 | HMH.PTOPEV ---
PT Outpatient Evaluation Rehab PT Outpatient Evaluation Start: 10/29/23 16:42 Freq: Status: Active Protocol: Document 10/29/23 16:42 ESTHER (Rec: 10/29/23 16:55 ESTHER [id number]) E-signed By Maikol Stack, PT Outpatient Therapy Subjective History Subjective History Patient is a 33 year old female presenting to outpatient PT with reports of chronic B (L>R) foot pain consistent with plantar fasciitis. Symptoms of insidious onset starting approx 1 year ago. Most recent imaging indicates small L calcaneal spur. 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 Observation indicates slight pes planus. 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 New diagnosis of cancer in past 12 No months? Chief Complaint Pain,Stiff Symptom Type Burning Symptoms Relieved By Rest/Positioning,Ice,OTC Meds Symptoms Aggravated By Standing,Physical Activity, Walking Prior Functional Limitations None Current Functional Limitations Housework,Standing,Squatting, Recreation Activity,Walking, Stairs Symptom Description Constant but Variable Level of pain today (0-10) 4 Pain scale - at its best (0-10) 3 Pain scale - at its worst (0-10) 8 Ankle/Foot Eval Gait Observation General Gait Pattern Observation No Deviations/Normal Palpation Tenderness left Ankle/Foot Palpation Findings Tenderness Ankle/Foot Palpation Overall Comment calcaneal tubercle 3/4 ROM right Ankle/Foot Dorsiflexion w/Knee Extended -7 Active Range Motion (degrees) Ankle/Foot Plantar Flexion Active Range WNL of Motion (degrees) Ankle/Foot Eversion Active Range of WNL Motion (degrees) Ankle/Foot Inversion Active Range of WNL Motion (degrees) Ankle/Foot ROM Limitations Soft Tissue Tightness Great Toe ROM Reason Not Measured Within Functional Limits left Ankle/Foot Dorsiflexion w/Knee Extended -11 Active Range Motion (degrees) Ankle/Foot Plantar Flexion Active Range WNL of Motion (degrees) Ankle/Foot Eversion Active Range of 19 Motion (degrees) Ankle/Foot Inversion Active Range of WNL Motion (degrees) Ankle/Foot ROM Limitations Soft Tissue Tightness Great Toe ROM Reason Not Measured Within Functional Limits MMT bilateral Ankle Dorsiflexion Strength Grade 5 Normal Ankle Plantarflexion Strength Grade 5 Normal Foot Eversion Strength Grade 4 Good Foot Inversion Strength Grade 4 Good Special Tests Ankle Anterior Drawer Test Negative Left,Negative Right Foot Interdigital Neuroma Test Negative Left,Negative Right Lower Extremity Functional Index Activities Today, do you or would you have any difficulty at all with: a.Any of your usual work, housework or A little bit of difficulty school activities b. Your usual hobbies, recreational or A little bit of difficulty sporting activities c. Getting into or out of the bath No difficulty d. Walking between rooms Extreme difficulty or unable to perform activity e. Putting on your shoes or socks No difficulty f. Squatting No difficulty g. Lifting an object, like a bag of No difficulty groceries from the floor h. Performing light activities around No difficulty your home i. Performing heavy activities around No difficulty your home j. Getting into or out of a car Quite a bit of difficulty k. Walking 2 blocks Quite a bit of difficulty l. Walking a mile Quite a bit of difficulty m. Going up or down 10 stairs (about 1 Quite a bit of difficulty flight of stairs) n. Standing for 1 hour Quite a bit of difficulty o. Sitting for 1 hour A little bit of difficulty p. Running on even ground A little bit of difficulty q. Running on uneven ground A little bit of difficulty r. Making sharp turns while running fast No difficulty s. Hopping No difficulty t. Rolling over in bed No difficulty LEFI Score Lower Extremity Functional Index Score 56 Outpatient Therapy Plan of Care Treatment Plan May Include Therapeutic Exercise Including Home Yes Exercise Program Manual Therapy Techniques Yes Neuromuscular Re-education Yes Therapeutic Activities to Return to Yes Previous Functional/Work Level Gait Training Yes ADL/Self Care Education Yes Dry Needling Yes Thermal Modalities Yes Electrical Stimulation Yes Ultrasound/Phonophoresis Yes Iontophoresis Yes Orthotics/Bracing/Splinting Yes Vasopneumatic Compression Pump Yes Massage Yes Eval/Re-Eval Yes Frequency Times per week 2 Duration Number of Weeks 4-6 Addendums This patient is a candidate for social No or vocational rehab? Patient/Guardian verbally acknowledges Yes understanding of treatment program and consents to further treatment? Patient/Guardian verbally acknowledges Yes understanding of diagnosis, prognosis and goals for treatment? Eval Complexity PT Charges 51850 - Moderate Complexity Shoulder/Elbow Eval Shoulder Objective Measurements Elbow Objective Measurements PHYSICIAN CERTIFICATION: I certify the specified therapy services for Opal Noel are required, authorized, and reviewed every 30 days.
== END 2023-10-29 16:50 | disposition home or self-care (01) ==
LOC: PT 15:59
PROVIDERS: PCP Nurse Practitioner Family; Visit Provider Nurse Practitioner Family
DX: M79.672 Pain in left foot (principal); M72.2 Plantar fascial fibromatosis; M77.32 Calcaneal spur, left foot
CPT/HCPCS: 97163

== ENCOUNTER 2023-12-28 13:12 | Outpatient (CLI) | payer BC, SELFPAY ==
--- NOTE | 2023-12-28 13:12 | MM_ITS ---
PROCEDURE INFORMATION: Exam: MG Bilateral Screening 3D Mammography Exam date and time: 12/28/2023 1:08 PM Age: 33 years old Clinical indication: Screening examination . Strong family history of premenopausal breast carcinoma. TECHNIQUE: Imaging protocol: Bilateral Screening tomosynthesis and 2D mammography including computer-aided detection (CAD) when performed. COMPARISON: 1. MG MM DIG MAMM DX UNILAT LT CAD 09/03/2022 8:45 AM 2. MG MM DIG SCREENING MAMM BI W/CAD 07/13/2022 4:47 PM 3. MG MM DIG SCREENING MAMM BI W/CAD 06/05/2021 2:21 PM FINDINGS: MAMMOGRAPHY: Breast composition: The breasts are heterogeneously dense, which may obscure small masses. Mass: New partially obscured 0.8 cm mass in the left lower inner quadrant, posterior depth, best seen on CC frame 20, MLO frame 38. No suspicious masses in the right breast. Architectural distortion: No suspicious distortion. Calcifications: No suspicious calcifications. Asymmetric density: None. Skin thickening: None. Axillary adenopathy: None. IMPRESSION: 1. Recommend left breast compression CC/MLO view, full field true lateral view and ultrasound for further evaluation of a partially obscured mass in the left lower inner quadrant. 2. No definite mammographic evidence of malignancy in the right breast. 3. Given the reported risk factors for this patient, a breast cancer risk assessment may prove useful for further evaluation. ASSESSMENT: BI-RADS Category 0: Incomplete- Need Additional Imaging Evaluation and/or Prior Mammograms for Comparison
== END 2023-12-28 23:59 ==
LOC: RAD 13:12
PROVIDERS: PCP Nurse Practitioner Family; Visit Provider Nurse Practitioner Family
DX: Z12.31 Encounter for screening mammogram for malignant neoplasm of breast (principal)
CPT/HCPCS: 77063; 77067

== ENCOUNTER 2024-03-10 15:00 | Outpatient (RCR) | payer BC, SELFPAY ==
--- NOTE | 2024-01-06 11:39 | HMH.PTOPEV ---
PT Outpatient Evaluation Rehab PT Outpatient Evaluation Start: 01/06/24 11:28 Freq: Status: Active Protocol: Document 01/06/24 11:28 ESTHER (Rec: 01/06/24 11:39 ESTHER [id number]) E-signed By Maikol Stack, PT Outpatient Therapy Subjective History Subjective History Patient is a 33 year old female presenting to outpatient PT with reports of chronic foot/ankle pain consistent with L plantar fasciitis. Symptoms of insidious onset starting approx 1 year ago. 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 No relief noted with previous trials of OTC inserts or injections. Most recent imaging indicates L calcaneal bone spur. Comorbidities include hx of bells palsy and trigeminal neuralgia. New diagnosis of cancer in past 12 No months? Chief Complaint Pain Symptom Type Throb Symptoms Relieved By Rest/Positioning,Ice,OTC Meds Symptoms Aggravated By Standing,Physical Activity, Walking Prior Functional Limitations None Current Functional Limitations Housework,Standing,Recreation Activity,Walking,Stairs Symptom Description Constant but Variable Level of pain today (0-10) 3 Pain scale - at its best (0-10) 3 Pain scale - at its worst (0-10) 9 Ankle/Foot Eval Gait Observation General Gait Pattern Observation Antalgic Gait,Decrease Weight Bear (L) Assistive Device Ambulation Assistive Device None Palpation Tenderness left Ankle/Foot Palpation Findings Tenderness Ankle/Foot Palpation Overall Comment L calcaneal tubercle 4/4 ROM Ankle/Foot ROM Reason Not Measured Within Functional Limits Great Toe ROM Reason Not Measured Within Functional Limits MMT Ankle Dorsiflexion Strength Grade 4 Good Ankle Plantarflexion Strength Grade 4 Good Foot Eversion Strength Grade 4 Good Foot Inversion Strength Grade 4 Good Special Tests Ankle Anterior Drawer Test Negative Left Ankle Eversion Test Negative Left Talar Tilt Test Negative Left Foot Interdigital Neuroma Test Negative Left Lower Extremity Functional Index Activities Today, do you or would you have any difficulty at all with: a.Any of your usual work, housework or Quite a bit of difficulty school activities b. Your usual hobbies, recreational or Extreme difficulty or unable sporting activities to perform activity c. Getting into or out of the bath Moderate difficulty d. Walking between rooms Quite a bit of difficulty e. Putting on your shoes or socks Quite a bit of difficulty f. Squatting No difficulty g. Lifting an object, like a bag of No difficulty groceries from the floor h. Performing light activities around A little bit of difficulty your home i. Performing heavy activities around Quite a bit of difficulty your home j. Getting into or out of a car No difficulty k. Walking 2 blocks A little bit of difficulty l. Walking a mile Quite a bit of difficulty m. Going up or down 10 stairs (about 1 Moderate difficulty flight of stairs) n. Standing for 1 hour Extreme difficulty or unable to perform activity o. Sitting for 1 hour No difficulty p. Running on even ground Extreme difficulty or unable to perform activity q. Running on uneven ground Extreme difficulty or unable to perform activity r. Making sharp turns while running fast No difficulty s. Hopping Quite a bit of difficulty t. Rolling over in bed No difficulty LEFI Score Lower Extremity Functional Index Score 40 Outpatient Therapy Assessment Impairments Problems/Impairmments Palpation Tenderness,Impaired Strength,Impaired Gait Pattern ,Impaired Walking,Impaired Standing,Impaired Household Care,Impaired Stair Climbing, Impaired Incline Stepping, Impaired Stepping on Uneven Surface,Impaired Recreational Activities,Impaired Work Activities,Subjective C/O Pain Prognosis Rehab Potential Good Clinical Impression Consistent with Diagnosis Yes Consistent with L plantar fasciitis Short Term Goals Number of Weeks 2 Decrease Subjective C/O Pain Yes: 5/10 at worst Patient to be Ind w/ HEP Yes [facility] Goals Number of Weeks 4-6 Decreased Palpation Tenderness Yes: 1/4 Increase Strength Yes: L foot/ankle mm 5/5 Increase Ability to Walk Yes: 1 hr without difficulty Increase Ability to Stand Yes: Improve Ability For Household Care Yes Improve Tolerance to Work Activities Yes Improve LEFI Score Yes: >60 Decrease Subjective C/O Pain Yes: 2/10 at worst Outpatient Therapy Plan of Care Treatment Plan May Include Therapeutic Exercise Including Home Yes Exercise Program Manual Therapy Techniques Yes Neuromuscular Re-education Yes Therapeutic Activities to Return to Yes Previous Functional/Work Level Gait Training Yes ADL/Self Care Education Yes Dry Needling Yes Thermal Modalities Yes Electrical Stimulation Yes Ultrasound/Phonophoresis Yes Iontophoresis Yes Orthotics/Bracing/Splinting Yes Vasopneumatic Compression Pump Yes Massage Yes Eval/Re-Eval Yes Frequency Times per week 2 Duration Number of Weeks 4-6 Addendums This patient is a candidate for social No or vocational rehab? Patient/Guardian verbally acknowledges Yes understanding of treatment program and consents to further treatment? Patient/Guardian verbally acknowledges Yes understanding of diagnosis, prognosis and goals for treatment? Eval Complexity PT Charges 51328 - Moderate Complexity Shoulder/Elbow Eval Shoulder Objective Measurements Elbow Objective Measurements PHYSICIAN CERTIFICATION: I certify the specified therapy services for Opal Noel are required, authorized, and reviewed every 30 days.
--- NOTE | 2024-02-11 09:08 | HMH.RHREAS ---
Rehab Reassessment Rehab OP Re-assessment Start: 01/06/24 11:28 Freq: Status: Active Protocol: Document 02/11/24 08:54 ESTHER (Rec: 02/11/24 09:07 ESTHER [id number]) E-signed By Maikol Stack, PT Lower Extremity Functional Index Activities Today, do you or would you have any difficulty at all with: a.Any of your usual work, housework or Quite a bit of difficulty school activities b. Your usual hobbies, recreational or Quite a bit of difficulty sporting activities c. Getting into or out of the bath Moderate difficulty d. Walking between rooms Quite a bit of difficulty e. Putting on your shoes or socks A little bit of difficulty f. Squatting No difficulty g. Lifting an object, like a bag of No difficulty groceries from the floor h. Performing light activities around A little bit of difficulty your home i. Performing heavy activities around Moderate difficulty your home j. Getting into or out of a car Moderate difficulty k. Walking 2 blocks Quite a bit of difficulty l. Walking a mile Quite a bit of difficulty m. Going up or down 10 stairs (about 1 Moderate difficulty flight of stairs) n. Standing for 1 hour Quite a bit of difficulty o. Sitting for 1 hour No difficulty p. Running on even ground Quite a bit of difficulty q. Running on uneven ground No difficulty r. Making sharp turns while running fast Quite a bit of difficulty s. Hopping Quite a bit of difficulty t. Rolling over in bed No difficulty LEFI Score Lower Extremity Functional Index Score 43 Rehab Re-assessment Subjective Subjective Patient reports no significant improvement since start of care. Objective Objective Notes AROM: DF 2; PF WNL; INV 28; EV 13 MMT: WNL Pain: current 5/10; at worst over past week 8/10 Neuro WNL Assessment Progress Assessment Slower Than Expected Assessment Notes Patient has been seen for initial eval and 3 treatment visits to date. Patient would benefit from continuing with skilled PT interventions in order to address functional limitations with all standing/ ambulatory activities. Patient goals met STG 2 Goals Not Met All others Revised Goals NA Plan Plan Continue with current POC. Frequency of Therapy 2x/week Duration of therapy 4 weeks Time and Billing Re-Eval Time 15 Re-Eval Billing Units 1 PHYSICIAN CERTIFICATION: I certify the specified therapy services for Opalharshal Noel are required, authorized, and reviewed every 30 days.
--- NOTE | 2024-03-12 15:41 | HMH.RHREAS ---
Rehab Reassessment Rehab OP Re-assessment Start: 01/06/24 11:28 Freq: Status: Active Protocol: Document 03/12/24 15:28 ESTHER (Rec: 03/12/24 15:41 ESTHER [id number]) E-signed By Maikol Stack, PT Lower Extremity Functional Index Activities Today, do you or would you have any difficulty at all with: a.Any of your usual work, housework or Moderate difficulty school activities b. Your usual hobbies, recreational or Moderate difficulty sporting activities c. Getting into or out of the bath Moderate difficulty d. Walking between rooms A little bit of difficulty e. Putting on your shoes or socks A little bit of difficulty g. Lifting an object, like a bag of No difficulty groceries from the floor h. Performing light activities around No difficulty your home i. Performing heavy activities around Quite a bit of difficulty your home j. Getting into or out of a car A little bit of difficulty k. Walking 2 blocks Moderate difficulty l. Walking a mile Extreme difficulty or unable to perform activity m. Going up or down 10 stairs (about 1 Quite a bit of difficulty flight of stairs) n. Standing for 1 hour Quite a bit of difficulty o. Sitting for 1 hour No difficulty p. Running on even ground Extreme difficulty or unable to perform activity q. Running on uneven ground Extreme difficulty or unable to perform activity r. Making sharp turns while running fast Extreme difficulty or unable to perform activity s. Hopping Extreme difficulty or unable to perform activity t. Rolling over in bed No difficulty Rehab Re-assessment Subjective Subjective Patient reports 10% improvement since start of care. Objective Objective Notes AROM: DF 2; PF WNL; INV 28; EV 13 MMT: WNL Pain: current 5/10; at worst over past week 8/10 Neuro WNL Assessment Progress Assessment Slower Than Expected Assessment Notes Patient has been seen for initial eval and 3 treatment visits to date. Patient would benefit from continuing with skilled PT interventions in order to address functional limitations with all standing/ ambulatory activities. Patient goals met STG 2 Goals Not Met All others Revised Goals NA Plan Plan Continue with current POC. [ End ] Frequency of Therapy 2x/week Duration of therapy 4 weeks Time and Billing Re-Eval Time 16 Re-Eval Billing Units 1 PHYSICIAN CERTIFICATION: I certify the specified therapy services for Opal Noel are required, authorized, and reviewed every 30 days.
== END 2024-03-10 15:05 | disposition home or self-care (01) ==
LOC: PT 15:00
PROVIDERS: PCP Nurse Practitioner Family; Visit Provider Nurse Practitioner Family
DX: M79.672 Pain in left foot (principal); M72.2 Plantar fascial fibromatosis
CPT/HCPCS: 20560; 97010; 97014; 97035; 97110; 97140; 97163; 97164; 97530; G0283

== ENCOUNTER 2024-03-16 18:00 | Outpatient (CLI) | payer BC, SELFPAY ==
[2024-03-16 17:49] LABS: Basophils % 0.5 % (0.1-2.0); Eosinophils # 0.2 K/mm3 (0.0-0.4); Hematocrit 43.9 % (37.0-47.0); Hemoglobin 14.3 g/dL (12.2-16.2); Lymphocytes # 1.3 K/mm3 (0.7-4.5); Lymphocytes % 27.9 % (10-50); Mean Corpuscular HGB Conc 32.6 g/dL (31.8-35.4); Mean Corpuscular Hemoglobin 31.7 pg (27.0-31.2); Mean Corpuscular Volume 97.3 fl (81-99); Mean Platelet Volume 10.5 fl (7.4-10.4); Monocytes # 0.3 K/mm3 (0.1-1.0); Monocytes % 6.8 % (1.7-9.3); Neutrophils # 2.8 K/mm3 (1.8-7.8); Neutrophils % 60.8 % (37.0-80.0); Platelet Count 194 K/mm3 (142-424); Red Blood Count 4.51 M/mm3 (4.20-5.40); Red Cell Distribution Width 12.9 % (11.5-17.5); White Blood Count 4.5 K/mm3 (4.8-10.8)
[2024-03-16 17:51] LABS: Alanine Aminotransferase 14 U/L (12-78); Albumin Level 4.4 g/dl (3.5-5.0); Albumin/Globulin Ratio 1.8 (1.1-1.8); Alkaline Phosphatase 49 U/L (38-126); Anion Gap 7.9 mEq/L (5-15); Aspartate Amino Transferase 27 U/L (14-36); Bilirubin,Total 0.8 mg/dl (0.2-1.3); Blood Urea Nitrogen 15 mg/dl (7-17); Calcium 9.4 mg/dl (8.4-10.2); Carbon Dioxide 28 mmol/L (22.0-30.0); Chloride 106 mmol/L (98-107); Chol/HDL Ratio 4.1 (1-3.5); Cholesterol 190 mg/dl (140-200); Estimated Glomerular Filt Rate 114 ml/min (>60); GFR (African American) 138 ML/MIN (>60); Globulin 2.5 g/dL (1.3-3.2); Glucose 90 mg/dl (74-100); HDL Cholesterol 46 mg/dl (40-60); Potassium 3.9 mmoL/L (3.5-5.1); Sodium 138 mmol/L (136-145); Total Protein,Serum 6.9 g/dl (6.3-8.2); Triglycerides 55 mg/dl (30-150); VLDL Cholesterol 11 mg/dL (0-40)
[2024-03-16 18:02] LABS: Direct LDL Cholesterol 125.65 mg/dL (100-129)
[2024-03-16 18:08] LABS: 25-OH Vitamin D, Total 30.4 ng/mL (30-100)
[2024-03-16 18:22] LABS: Thyroid Stimulating Hormone 0.58 uIU/mL (0.465-4.68)
[2024-03-18 08:16] LABS: FSH 6.9 mIU/mL (.); Progesterone 0.2 ng/mL (.)
[2024-03-23 20:26] LABS: Estrogen 233 pg/mL (.)
== END 2024-03-16 23:59 | disposition home or self-care (01) ==
LOC: LAB.DROPOF 03-17 14:16
PROVIDERS: PCP Nurse Practitioner Family; Visit Provider Nurse Practitioner Family
DX: R53.83 Other fatigue (principal); R51.9 Headache, unspecified; F41.9 Anxiety disorder, unspecified; F32.A Depression, unspecified
CPT/HCPCS: 80053; 80061; 82306; 82672; 83001; 84144; 84443; 85025

== ENCOUNTER 2024-10-13 13:44 | Outpatient (CLI) | payer BC, SELFPAY ==
--- NOTE | 2024-10-13 13:47 | US_ITS ---
PROCEDURE INFORMATION: Exam: US Left Breast, Complete MG Left Diagnostic Breast Tomosynthesis Exam date and time: 10/13/2024 1:50 PM Age: 34 years old Clinical indication: Recall on the basis of screening mammogram 12/28/2023 for further evaluation of new partially obscured 0.8 cm mass in the left lower inner quadrant, posterior depth. TECHNIQUE: Imaging protocol: Complete ultrasound of all four quadrants of the left breast and the retroareolar regions, including ultrasound of the axilla when performed. Left Diagnostic tomosynthesis and 2D mammography including computer-aided detection (CAD) when performed. Unilateral or bilateral exam. COMPARISON: 1. MG MM DIG SCREENING MAMM BI W/CAD 12/28/2023 1:08 PM 2. MG MM DIG MAMM DX UNILAT LT CAD 09/03/2022 8:45 AM 3. MG MM DIG SCREENING MAMM BI W/CAD 07/13/2022 4:47 PM 4. MG MM DIG SCREENING MAMM BI W/CAD 06/05/2021 2:21 PM FINDINGS: MAMMOGRAPHY: Breast composition: The breast is heterogeneously dense, which may obscure small masses based on the most recent screening mammogram report. Breast mammogram findings: Spot compression demonstrates larger, 1.1 cm, mass with irregular margins in the lower inner quadrant posterior depth. ULTRASOUND: Breast ultrasound findings: Left sonography, all 4 quadrants, retroareolar and axilla. At 7 o'clock 7 cm from the nipple, irregular solid mass measuring 1.1 x 1.3 x 0.7 cm which likely corresponds to the mammographic mass. At 7 o'clock 8 cm from the nipple, irregular solid mass measuring 0.6 x 1.0 x 0.4 cm. At 9 o'clock 8 cm from the nipple, lobulated solid mass measuring 0.6 x 0.7 x 0.2 cm. At 4 o'clock 4 cm from the nipple, intramammary lymph node measuring 0.6 x 0.4 x 0.7 cm. At 3 o'clock 4 cm from the nipple, anechoic avascular cyst measuring 0.6 x 0.3 x 0.6 cm. Palpable region in the left axilla appears to correspond to a sonographically unremarkable lymph node with maintained echogenic hilum and no increased Doppler flow measuring 2.0 cm. Several additional sonographically unremarkable axillary lymph nodes demonstrated. IMPRESSION: Highly suspicious mammographic mass in the lower-inner quadrant corresponds to an irregular solid 1.1 cm mass at 7 o'clock. Additional solid masses at 7 and 9 o'clock are suspicious for additional extent of disease. Ultrasound-guided biopsies are recommended, with correlation to ensure that the sonographic placed clip at 7 o'clock corresponds to the mammographic mass. (consider adding extent of disease MRI after breast biopsy, as clinically indicated). Palpable concern in the left axilla corresponds to a sonographically unremarkable axillary lymph node.Further evaluation of a palpable abnormality should be based on clinical grounds regardless of radiographic findings or lack thereof. ASSESSMENT: BI-RADS Category 5: Highly suggestive of malignancy.
== END 2024-10-13 23:59 | disposition home or self-care (01) ==
LOC: RAD 13:45
PROVIDERS: PCP Nurse Practitioner Family; Visit Provider Surgery
DX: N63.20 Unspecified lump in the left breast, unspecified quadrant (principal)
CPT/HCPCS: 76641; 77061; 77065; G0279

== ENCOUNTER 2024-10-23 13:31 | Emergency (ER) | payer BC, SELFPAY ==
[2024-10-23] VITALS (7 sets, daily range): BP systolic 99–128; BP diastolic 58–86; PULSE 71–86; RESP 16–20; TEMP 36.9–37.3; O2SAT 96–100
--- NOTE | 2024-10-23 13:35 | ECG_ITS ---
APPROVED REPORT Exam: Resting ECG HR:73 bpm ECG Measurements Heart Rate 73 AXES SC 155 P 56 QRSd 89 QRS 47 QT 368 T 38 QTc 393 Conclusion SINUS RHYTHM NORMAL ECG UNCONFIRMED REPORT Electronically signed by : Art Golden, 10/23/2024 14:55:31
--- NOTE | 2024-10-23 13:39 | XR_ITS ---
PROCEDURE INFORMATION: Exam: XR Chest Exam date and time: 10/23/2024 2:23 PM Age: 34 years old Clinical indication: Dyspnea; Additional info: SOB TECHNIQUE: Imaging protocol: Radiologic exam of the chest. Views: 2 views. PA and Lateral COMPARISON: No relevant prior studies available. FINDINGS: Tubes, catheters and devices: None. Lungs: The lungs appear clear without pulmonary venous congestion. Pleural spaces: No pleural effusion. No pneumothorax. Heart/Mediastinum: Mediastinum and sukhjinder appear unremarkable. Bones/joints: No acute bony abnormality identified. IMPRESSION: No evidence for an acute cardiopulmonary process.
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
[2024-10-23 14:09] LABS: Albumin Level 4.7 g/dl (3.5-5.0); Chloride 107 mmol/L (98-107); Potassium 3.6 mmoL/L (3.5-5.1); Sodium 139 mmol/L (136-145)
[2024-10-23 14:11] LABS: Creatinine Clearance Estimated 139 mL/min (50-200); Estimated Glomerular Filt Rate 95 ml/min (>60); GFR (African American) 115 ML/MIN (>60)
[2024-10-23 14:12] LABS: Alanine Aminotransferase 17 U/L (12-78); Albumin/Globulin Ratio 1.7 (1.1-1.8); Basophils % 0.4 % (0.1-2.0); Bilirubin,Total 0.4 mg/dl (0.2-1.3); Eosinophils # 0.1 K/mm3 (0.0-0.4); Eosinophils % 2.1 % (0.1-12.0); Globulin 2.7 g/dL (1.3-3.2); Glucose 100 mg/dl (74-100); Hematocrit 42.2 % (37.0-47.0); Lymphocytes # 1.3 K/mm3 (0.7-4.5); Lymphocytes % 27.4 % (10-50); Mean Corpuscular HGB Conc 33.1 g/dL (31.8-35.4); Mean Corpuscular Hemoglobin 30.4 pg (27.0-31.2); Mean Corpuscular Volume 91.9 fl (81-99); Mean Platelet Volume 8.8 fl (7.4-10.4); Monocytes # 0.3 K/mm3 (0.1-1.0); Monocytes % 6.8 % (1.7-9.3); Neutrophils # 3.1 K/mm3 (1.8-7.8); Neutrophils % 63.3 % (37.0-80.0); Platelet Count 216 K/mm3 (142-424); Red Blood Count 4.59 M/mm3 (4.20-5.40); Red Cell Distribution Width 12.5 % (11.5-17.5); Total Protein,Serum 7.4 g/dl (6.3-8.2); White Blood Count 4.9 K/mm3 (4.8-10.8)
[2024-10-23 14:31] LABS: HCG Qualitative, Serum Negative (Negative)
[2024-10-23 15:13] LABS: Alkaline Phosphatase 55 U/L (38-126); Anion Gap 9.6 mEq/L (5-15); Aspartate Amino Transferase 39 U/L (14-36); Blood Urea Nitrogen 10 mg/dl (7-17); Carbon Dioxide 26 mmol/L (22.0-30.0)
[2024-10-23 16:09] LABS: HIV (1&2) Antibody Rapid NONREACTIVE (NONREACTIVE)
[2024-10-23 16:10] LABS: Troponin I < 0.01 ng/ml (0.00-0.034)
[2024-10-24 09:16] LABS: HCV Ab Non Reactive (Non Reactive)
== END 2024-10-23 16:59 | disposition home or self-care (01) ==
PROVIDERS: Student in an Organized Health Care Education/Training Program; Emergency Provider Emergency Medicine; PCP Nurse Practitioner Family
DX: R06.02 Shortness of breath (principal); R00.2 Palpitations; R42 Dizziness and giddiness; R53.1 Weakness
CPT/HCPCS: 71046; 80053; 84484; 84703; 85025; 86803; 87389; 93005; 99284

== ENCOUNTER 2025-01-01 11:59 | Outpatient (CLI) | payer BC, SELFPAY ==
--- NOTE | 2025-01-01 12:06 | XR_ITS ---
FINAL REPORT CLINICAL HISTORY: PAIN COMPARISON: None FINDINGS: AP, oblique and lateral views of the right foot were obtained. There is no acute fracture or dislocation. The joint spaces are preserved. Soft tissues are unremarkable. IMPRESSION: No acute osseous abnormality of the right foot. Reviewed, Interpreted and Dictated by Jocelyn Sow MD Transcribed by Stacey Boyd Authenticated and . [facility]
--- NOTE | 2025-01-01 12:06 | XR_ITS ---
FINAL REPORT CLINICAL HISTORY: foot pain COMPARISON: None FINDINGS: AP, oblique and lateral views of the left foot were obtained. There is no acute fracture or dislocation. The joint spaces are preserved. Soft tissues are unremarkable. IMPRESSION: No acute osseous abnormality of the left foot. Reviewed, Interpreted and Dictated by Jocelyn Sow MD Transcribed by Stacey Boyd Authenticated and [facility]
== END 2025-01-01 23:59 | disposition home or self-care (01) ==
LOC: RAD 12:00
PROVIDERS: PCP Nurse Practitioner Family; Visit Provider Family Medicine
DX: M79.672 Pain in left foot (principal); M79.671 Pain in right foot; L03.90 Cellulitis, unspecified
CPT/HCPCS: 73630

== ENCOUNTER 2025-01-28 00:45 | Emergency (ER) | payer BC, SELFPAY ==
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
--- NOTE | 2025-01-28 00:55 | PC.NURSE ---
Dr Lopez at bedside
[2025-01-28] MEDS: KETOROLAC 30MG/ML VIAL 30 MG IM (01:14)
[2025-01-28] MEDS: OXYCODONE 5MG IMMEDIATE RELEASE TABLET 5 MG PO (01:14)
--- NOTE | 2025-01-28 01:15 | PC.NURSE ---
Patient dressing slightly dampened with serosanguineous drainage. No purulence noted. Old dressing removed, and area cleaned with chlorahexadine, biopatch replaced, and covered with large tegaderm. Patient reports slight pain/soreness with pressure, but tolerated dressing change well. MAURY wrap rewrapped around surgical site with assistance from patient. DANIEL appears to be in good position, remains sutured in place, and currently draining with approx 15ml output at present in bulb.
[2025-01-28 01:37] VITALS: BP 125/56; PULSE 103; RESP 18; TEMP 37.2; O2SAT 98; BMI 29.2
[2025-01-28 01:46] VITALS: BP 129/77; PULSE 100; RESP 17; TEMP 37.2; O2SAT 97
== END 2025-01-28 01:47 | disposition home or self-care (01) ==
PROVIDERS: Emergency Provider Emergency Medicine; PCP Nurse Practitioner Family
DX: G89.18 Other acute postprocedural pain (principal)
CPT/HCPCS: 96372; 99284; J1885

== ENCOUNTER 2025-08-29 09:05 | Outpatient (CLI) | payer BC, SELFPAY ==
--- OUTSIDE RECORDS SUMMARY | 2025-02-28 05:05 | XMS_ITS | Encounter Summary ---
[facility] Organization [facility] Address [address] [place] [address] Care Team Providers Care Front Desk Person Name Role Phone Jr José Caballero ROLLOFF DRIVER Primary Care Prov ider Encounter Details Date Type Department Care Team (Late st Contact Info) Description 02/28/2025 5:05 AM EDT Hospital Encounter [facility] [place] [address] [address] [facility] [address] [place] [address] Social History Tobacco Use Types Packs/Day Years Used Date Smoking Tobacco: Never Smokeless Tobacco: Never Alcohol Use Standard Drinks/Week Comments Never 0 (1 standard drink = 0.6 oz pur e alcohol) AUDIT-C Answer Date Recorded Q1: How often do you have a drink containing alcohol? Never 01/23/2025 Q2: How many drinks containi ng alcohol do you have on a typical day when you are drinking? Patient does not drink Q3: How often do you have si x or more drinks on one occasion? Never 01/23/2025 Abuse Screen Answer Date Recorded Feels Unsafe at Home or Work/School no 01/31/2025 Feels Threatened by Someone no 01/13 Does Anyone Try to Keep You From Having Contact with Others or Doing Things Outside Your Home? no 01/31/2025 Physical Signs of Abuse Present no 01/31/2025 Housing Stability Answer Date Recorded Current Living Arrangements home 01/13 Potentially Unsafe Housing Conditions Not on alice e 01/23/2025 Disabilities Answer Date Recorded Difficulty Concentrating, Remembering or Making Decisions no 01/23/2025 Difficulty Managing Errands Independently no 01/23/2025 Education Answer Date Recorded Help with school or training? Not on file Preferred Language Rwandan 01/19/2025 PHQ-2 Answer Date Recorded Patient Health Questionnaire-9 Score 2 01/31/2025 Comments No Sex and Gender Information Value Date Recorded Sex Assigned at Not on file Legal Sex Female 12:33 PM EDT Gender Identity Not on file Sexual Orientation Not on file documented as of this encounter Plan of Treatment Upcoming Encounters Date Type Department Care Team (Late st Contact Info) Description 09/06/2025 2:45 PM EDT Office Visit [facility] GENERAL SURGERY 3000 [facility] [address] [place] [phone] Donna Levy MD 1760 [facility] [address] [place] [address] 07/04/2026 11:30 AM EDT Office [facility] [address] [place] [address] Clarke Beaver, ROLLOFF DRIVER [address] [place] [address] documented as of this encounter Visit Diagnoses Not on filedocumented in this encounter Care Teams Front Desk Person Relationship Specialty Start Date End Date Jr José Caballero, ROLLOFF DRIVER [address] [place] [address] PCP - General Nurse Practitioner 01/08/25 documented as of this encounter
--- OUTSIDE RECORDS SUMMARY | 2025-03-21 05:35 | XMS_ITS | Encounter Summary ---
[facility] Address [address] [place] [address] Care Team Providers Care Land Management Forester Name Role Phone Jr José Caballero DIRECTOR WORKERS COMPENSATION Primary Care Prov ider Reason for Visit * Auth/Cert (Routine) Specialty Diagnoses / Procedures Referred By Contac t Referred To Contact Diagnoses Malignant neoplasm of overlapping sites of left female breast Procedures CHG RADIATION TREATMENT DELIVERY >=1 MEV COMPLEX Referral ID Status Reason Start Date Expiration Date Visits Re quested Visits Authorized [id number] 1 1 Encounter Details Date Type Department Care Team (Late st Contact Info) Description 03/21/2025 5:35 AM EDT Hospital Encounter [facility] [place] [address] [facility] [address] [place] [address] Social History Tobacco Use Types [...] or training? Not on file Preferred Language North Korean 01/19/2025 PHQ-2 Answer Date Recorded Patient Health [...] Description 09/06/2025 2:45 PM EDT Office Visit [facility] GENERAL SURGERY 3000 [facility] [address] [place] [address] Donna Levy MD 1760 [facility] [address] [place] [address] 07/04/2026 11:30 AM EDT Office Visit [facility] [address] [place] [address] Clarke Beaver, DIRECTOR WORKERS COMPENSATION [address] [place] [address] documented as of this encounter Visit Diagnoses Not on filedocumented in this encounter Care Teams Land Management Forester Relationship Specialty Start Date End Date Jr José Caballero, DIRECTOR WORKERS COMPENSATION [address] [place] [address] PCP - General Nurse Practitioner 01/08/25 documented as of this encounter
--- OUTSIDE RECORDS SUMMARY | 2025-04-20 05:25 | XMS_ITS | Encounter Summary ---
[facility] Organization [facility] Address [address] [place] [address] Care Team Providers Care Summer Child Caregiver Name Role Phone Jr José Caballero STRAW HAT PLUNGER OPERATOR Primary Care Prov ider Reason for Visit * Auth/Cert (Routine) Specialty Diagnoses / Procedures Referred By Contac t Referred To Contact Diagnoses Malignant neoplasm of overlapping sites of left female breast Procedures CHG RADIATION TREATMENT DELIVERY >=1 MEV COMPLEX Referral ID Status Reason Start Date Expiration Date Visits Re quested Visits Authorized [id number] 1 1 Encounter Details Date Type Department Care Team (Late st Contact Info) Description 04/20/2025 5:25 AM EDT Hospital Encounter [facility] [place] [address] [facility] [address] [place] [address] Social History Tobacco Use Types [...] or training? Not on file Preferred Language Colombian 01/19/2025 PHQ-2 Answer Date Recorded Patient Health [...] Description 09/06/2025 2:45 PM EDT Office Visit [facility] GENER[facility] SUR[facility] 3000 [facility] [address] [place] [address] Donna Levy MD 1760 [facility] [address] [place] [address] 07/04/2026 11:30 AM EDT Office Visit [facility] [address] [place] [address] Clarke Beaver, STRAW HAT PLUNGER OPERATOR [address] [place] [address] documented as of this encounter Visit Diagnoses Not on filedocumented in this encounter Care Teams Summer Child Caregiver Relationship Specialty Start Date End Date Jr José Caballero, STRAW HAT PLUNGER OPERATOR [address] [place] [address] PCP - General Nurse Practitioner 01/08/25 documented as of this encounter
--- OUTSIDE RECORDS SUMMARY | 2025-05-15 06:35 | XMS_ITS | Encounter Summary ---
[facility] Organization [facility] Address [address] [place] [address] Care Team Providers Care Counter Tacker Name Role Phone Jr José Caballero PROGRAMS ASSISTANT Primary Care Prov ider Reason for Visit * Auth/Cert (Routine) Specialty Diagnoses / Procedures Referred By Contac t Referred To Contact Diagnoses Malignant neoplasm of overlapping sites of left female breast Procedures CHG RADIATION TREATMENT DELIVERY >=1 MEV COMPLEX Referral ID Status Reason Start Date Expiration Date Visits Re quested Visits Authorized [id number] 1 1 Encounter Details Date Type Department Care Team (Late st Contact Info) Description 05/15/2025 6:35 AM EDT Hospital Encounter [facility] [place] [address] [facility] [address] [place] [address] Social History Tobacco Use Types [...] or training? Not on file Preferred Language Bruneian 01/19/2025 PHQ-2 Answer Date Recorded Patient Health [...] Description 09/06/2025 2:45 PM EDT Office Visit [facility] GENERAL SURGERY 3000 [facility] [address] [place] [address] Donna Levy MD 1760 [facility] [address] [place] [address] 07/04/2026 11:30 AM EDT Office Visit [facility] [address] [place] [address] Clarke Beaver, PROGRAMS ASSISTANT [address] [place] [address] documented as of this encounter Visit Diagnoses Not on filedocumented in this encounter Care Teams Counter Tacker Relationship Specialty Start Date End Date Jr José Caballero, PROGRAMS ASSISTANT [address] [place] [address] PCP - General Nurse Practitioner 01/08/25 documented as of this encounter
--- OUTSIDE RECORDS SUMMARY | 2025-07-02 05:55 | XMS_ITS | Encounter Summary ---
Author Organization [facility] Address [address] [place] [address] Care Team Providers Care Financial Service Rep Name Role Phone Jr José Caballero LENS GRINDER ROUGH Primary Care Prov ider Reason for Visit * Auth/Cert (Routine) Specialty Diagnoses / Procedures Referred By Contac t Referred To Contact Diagnoses Malignant neoplasm of overlapping sites of left female breast Procedures CHG RADIATION TREATMENT DELIVERY >=1 MEV COMPLEX Referral ID Status Reason Start Date Expiration Date Visits Re quested Visits Authorized [id number] 1 1 Encounter Details Date Type Department Care Team (Latest Contact Info) Description 07/02/2025 5:55 AM EDT - 07/02/2025 11:59 PM EDT Hospital Encounter [facility] [address] [facility] [address] [place] [address] Discharge Disposition: Home or Self Care Social History Tobacco Use Types Packs/Day Years [...] or training? Not on file Preferred Language American 01/19/2025 PHQ-2 Answer Date Recorded Patient Health Questionnaire-9 Score 2 01/31/2025 Comments No Sex and Gender Information Value Date Recorded Sex Assigned at Not on file Legal Sex Female 12:33 PM EDT Gender Identity Not on file Sexual Orientation Not on file documented as of this encounter Medications at Time of Discharge Acetaminophen (Tylenol) 325 MG capsule Take 500 mg by mouth Daily As Needed. 08/07/2015 lamoTRIgine (LaMICtal) 25 MG tablet Take 1 tablet by mouth Daily. 03/30/2025 Magic Mouthwash Radonc (nystatin - diphenhydrAMINE HCl - dexamethasone - lidocaine) Swish and swallow 10 mL 4 (Four) Times a Day Before Meals & at Bedtime. 482 mL 1 05/04/2025 4:55 PM EDT 05/04/2025 oxyCODONE (ROXICODONE) 5 MG immediate release tablet Take 1 tablet by mouth Every 8 (Eight) Hours As Needed. for pain 01/28/2025 documented as of this encounter Plan of Treatment Upcoming Encounters Date Type Department Care Team (Late st Contact Info) Description 09/06/2025 2:45 PM EDT Office Visit [facility] GENERAL SURGERY [address] [facility] [address] [place] [address] Donna Levy MD [address] [place] [address] 07/04/2026 11:30 AM EDT Office Visit [facility] [address] [place] [address] Clarke Beaver, LENS GRINDER ROUGH [address] [place] [address] documented as of this encounter Visit Diagnoses Not on filedocumented in this encounter Care Teams Financial Service Rep Relationship Specialty Start Date End Date Jr José Caballero, LENS GRINDER ROUGH [address] [place] [address] PCP - General Nurse Practitioner 01/08/25 documented as of this encounter
--- OUTSIDE RECORDS SUMMARY | 2025-07-02 15:00 | XMS_ITS | Encounter Summary ---
Author Organization [facility] Address [address] [place] [address] Care Team Providers Care Standard Machine Stitcher Name Role Phone Jr José Caballero CAFETERIA CASHIER Primary Care Prov ider Reason for Visit * Reason Comments Malignant neoplasm of overlapping sites of left breast in fe * Auth/Cert (Routine) Specialty Diagnoses / Procedures Referred By Contac t Referred To Contact Diagnoses Malignant neoplasm of overlapping sites of left female breast Procedures CHG RADIATION TREATMENT DELIVERY >=1 MEV COMPLEX Referral ID Status Reason Start Date Expiration Date Visits Re quested Visits Authorized [id number] 1 1 Encounter Details Date Type Department Care Team (Late st Contact Info) Description 07/02/2025 3:00 PM EDT Clinical Support [facility] [address] [place] [address] Clarke Beaver, CAFETERIA CASHIER [address] [place] [address] Carcinoma of lower-inner quadrant of breast, left (Primary Dx) Social History Tobacco Use Types Packs/Day Years [...] or training? Not on file Preferred Language Afghan 01/19/2025 PHQ-2 Answer Date Recorded Patient Health Questionnaire-9 Score 2 01/31/2025 Comments No Sex and Gender Information Value Date Recorded Sex Assigned at Not on file Legal Sex Female 12:33 PM EDT Gender Identity Not on file Sexual Orientation Not on file documented as of this encounter Progress Notes * Calrke Beaver, CAFETERIA CASHIER - 07/02/2025 3:00 PM EDT This visit has been converted to a telehealth virtual visit, the patient's preferred method for today's follow-up. Total time of discussion was 13 minutes. The patient has given verbal consent. Follow Up Office Visit Encounter Date: 07/02/2025 Patient Name: Opal Noel Date of : 1990 Primary Diagnosis: Malignant neoplasm of overlapping sites of left breast in female, estrogen receptor positive [C50.812, Z17.0] Cancer Staging: Cancer Staging pT1c(m) pN1mi (sn) cM0 Chief Complaint: Chief Complaint Patient presents with Breast Cancer Oncologic History: Opal Noel is a 35 y.o. 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 She has a strong family history of breast cancer. Diagnostic mammography/US -Left breast: 1.5 cm oval mass in LIQ at 7:00 7-8 cfn and .9 cm oval massat 8:00 8-9 cfn. Nodular asymmetries were noted in the 2:00position. No suspicious left axillary LNand no suspicious findings in right breast. The 7:00 site was biopsy proven to contain an int grade IDC (+/+/-) and the 7:30 site was biopsy proven to contain low grade IDC (+/+/-). 2:00 site - fibrocystic change. Additional area of concern was identified in the left breast on bilateral breast MRI for which MRI guided biopsy was recommended. This returned as DCIS (ER+/NC+). Left mastectomy and SLN eval - multifocal gr 2 IDC (largest 1.1 cm), metastatic ductal carcinoma present in [address] (2mm, no AKSHAT), extensive background DCIS, margins negative. [address] examined[address] [id number] Oncotype score 7 indicating low risk. The patient opted to not pursue adjuvant chemotherapy. She underwent a course of adjuvant RT directed towards the left chest wall/regional lymphatics to adose of 50 Gy/25 fractions, completing 06/01/2025. Interval History: Colleen RT well. Gr 1 fatigue is abating. She developed gr 2 radiation dermatitis, managed with application of topical skin moisturizers and reportedly now well-healed. She reports onlynotable residual skin reaction is some hyperpigmentation and dryness involving the left shoulder blade area. She notes some occasional postoperative sensitivity within the left chest wall, notes improvement in ROM of LUE in spite of some ongoing tightness. Denies lymphedema. Denies SOA or CP. Reports only mild esophagitis at this point, no longer requiring MMW. She intends to pursue delayed surgical reconstruction of the left breast. She has opted to forego adjuvant endocrine therapy and is not interested in started Tamoxifen. Prior Radiation: Adjuvant RT directed towards LCW/RNI (50 Gy/25 fr) Completion Date: 06/01/2025 Subjective Review of Systems: Review of Systems Constitutional: Positive for fatigue. All other systems reviewed and are negative. The following portions of the patient's history were reviewed and updated as appropriate: allergies, current medications, past family history, past medical history, past social history, past surgicalhistory and problem list. Measures: KPS/Quality of Life: 90 - Limited Activity Objective Physical Exam: Pulmonary: Respirations even, unlabored. No audible wheezing or cough. Neurological: A+Ox4, conversant, answers questions appropriately. Psychiatric: Judgement, affect, and decision-making WNL. Limited physical exam as visit was conducted remotely via telephone. Assessment / Plan Assessment/Plan: Diagnoses and all orders for this visit: 1. Carcinoma of lower-inner quadrant of breast, left (Primary) Opal Noel is a pleasant 35 y.o. female with a pT1c(m) pN1mi (sn) +/+/- invasive ductalcarcinoma of the left breast managed with left mastectomy and SLN eval on 01/23/25. She is now 1 mo s/p adjuvant RT and is recovering appropriately from the typical acute radiation related toxicities.We discussed the role of local chestwall/scar massage, as well as stretching and ROM exercises of the LUE to minimize the risk of treatment related fibrosis or lymphedema, particularly since she intends to pursue delayed surgical reconstruction which we discussed should be at least 6 months out from her radiotherapy course. She will notify our clinic if/when she would like referral to one of our plastic surgery colleagues. The patient has previously discussed adjuvant Tamoxifen with Dr. Youssef but ultimately she has decided against endocrine therapy. She prefers ongoing surveillance with serial clinical exams in addition to mammography of the in tact right breast. She will continue follow up in the surgical oncology breast clinic with Dr. GONZALES and we will see her back in clinic in 1 year orsooner as needed. Follow Up: Return in about 1 year (around 07/02/2026) for Office Visit. Time: I spent 35 minutes on this encounter today, 07/02/25. Activities that took place during this time include: - preparing to see the patient - obtaining and reviewing separately obtained history - performing a medically appropriate examination and evaluation - counseling and educating the patient - ordering medications/tests/procedures - communicating with other healthcare providers - documenting clinical information in the health record - coordinating care for this patient. Sincerely, Clarke Beaver APRN, DNP, FIELD SUPPORT REP-C Radiation Oncology This document has been signed by Clarke Beaver APRN on July 02, 2025 15:41 EDT NOTICE TO PATIENTS At [facility], we believe that sharing information builds trust and better relationships. You are receiving this note because you recently visited [facility]. It is possible you will see health information before a provider has talked with you about it. This kind of information can be easy to misunderstand. To help you fully understand what it means for your health, we urge you to discussthis note with your provider. documented in this encounter Plan of Treatment Upcoming Encounters Date Type Department Care Team (Late st Contact Info) Description 09/06/2025 2:45 PM EDT Office Visit [facility] GENERAL SURGERY 3000 [facility] [address] [place] [address] Donna Levy MD 1760 [facility] [address] [place] [address] 07/04/2026 11:30 AM EDT Office Visit [facility] [address] [facility] [place] [address] Clarke Beaver, CAFETERIA CASHIER [address] [place] [address] documented as of this encounter Visit Diagnoses Diagnosis Carcinoma of lower-inner quadrant of breast, left- Primary documented in this encounter Care Teams Standard Machine Stitcher Relationship Specialty Start Date End Date Jr José Caballero APRN [address] [place] [address] PCP - General Nurse Practitioner 01/08/25 documented as of this encounter
--- OUTSIDE RECORDS SUMMARY | 2025-08-30 09:25 | XMS_ITS | Encounter Summary ---
[facility] Address [address] [place] [address] Care Team Providers Care Pigeon Fancier Name Role Phone Jr José Caballero APRN Primary Care Prov ider Encounter Details Date Type Department Care Team (Latest Contact Info) Description 07/02/2025 Travel Social History Tobacco Use Types Packs/Day Years [...] or training? Not on file Preferred Language Citizen Of [place] 01/19/2025 PHQ-2 Answer Date Recorded Patient Health [...] Description 09/06/2025 2:45 PM EDT Office Visit [facility] GENERAL SURGERY 3000 [facility] [address] [place] [address] Donna Levy MD 1760 [facility] [address] [place] [address] 07/04/2026 11:30 AM EDT Office Visit [facility] [address] [place] [address] Clarke Beaver, LABORER CONSTRUCTION OR LEAK GANG [address] [place] [address] documented as of this encounter Visit Diagnoses Not on filedocumented in this encounter Care Teams Pigeon Fancier Relationship Specialty Start Date End Date Jr José Caballero, LABORER CONSTRUCTION OR LEAK GANG [address] [place] [address] PCP - General Nurse Practitioner 01/08/25 documented as of this encounter
--- OUTSIDE RECORDS SUMMARY | 2025-08-30 09:25 | XMS_ITS ---
[facility] Address [address] [place] [address] Care Team Providers Care Supervisor Purification Name Role Phone Jr José Caballero APRN Primary Care Prov ider Active Problems Problem Noted Date Diagnosed Date Carcinoma of lower-inner quadrant of breast, lef t 01/23/2025 Current Treatment and Therapy Plans No current plan information found. Past Treatment and Therapy Plans No past plan information found. Radiation Treatments * Course 1 04/24/2025 - 06/01/2025 Treatment Period Energy Fraction Dose Fractions Total Dose Plans Planned Lt CW [facility]IB[facility] 04/24/2025 - 06/01/2025 2 5,000 Lt Sclv [facility]IB[facility] 04/24/2025 - 06/01/2025 2 5,000 Reference Points Delivered Lt CW [facility] 04/24/2025 - 06/01/2025 50 Lt Sclv [facility] 04/24/2025 - 06/01/2025 50
--- OUTSIDE RECORDS SUMMARY | 2025-08-30 09:25 | XMS_ITS | Encounter Summary ---
[facility] Address [address] [place] [address] Care Team Providers Care Performance Improvement Manager Name Role Phone Jr José Caballero APRN Primary Care Prov ider Encounter Details Date Type Department Care Team (Late st Contact Info) Description 07/02/2025 Telephone [facility] [address] [place] [address] Yasmin Padilla, INOCENCIA Social History Tobacco Use Types Packs/Day Years [...] or training? Not on file Preferred Language Welsh 01/19/2025 PHQ-2 Answer Date Recorded Patient Health Questionnaire-9 Score 2 01/31/2025 Comments No Sex and Gender Information Value Date Recorded Sex Assigned at Not on file Legal Sex Female 12:33 PM EDT Gender Identity Not on file Sexual Orientation Not on file documented as of this encounter Miscellaneous Notes * Telephone Encounter - Yasmin Padilla RN - 07/02/2025 1:50 PM EDTSummary: Return To Work Letter Returned patient's call regarding Return To Work letter. [employer] sent letter to patient's place of employment on 06/29/25, however, patient states that HR did not receive the letter. Per patient's request, sent the letter directly to patient's email and to an HR email. Also, faxed the letter to the fax number provided by patient and did receive a confirmation. Provided my contact number should patient have questions or concerns. documented in this encounter Plan of Treatment Upcoming Encounters Date Type Department Care Team (Late st Contact Info) Description 09/06/2025 2:45 PM EDT Office Visit [facility] GENER[facility] SURGERY 3000 [facility] [address] [place] [address] Donna Levy MD [address] [place] [address] 07/04/2026 11:30 AM EDT Office Visit [facility] [address] [place] [address] Clarke Beaver, RONNIE [address] [place] [address] documented as of this encounter Visit Diagnoses Not on filedocumented in this encounter Care Teams Performance Improvement Manager Relationship Specialty Start Date End Date Jr José Caballero APRN [address] [place] [address] PCP - General Nurse Practitioner 01/08/25 documented as of this encounter
--- OUTSIDE RECORDS SUMMARY | 2025-08-30 09:25 | XMS_ITS | Clinical Summary ---
[facility] Address [address] [place] [address] Care Team Providers Care Tube Former Operator Name Role Phone Jr José Caballero APRN Primary Care Prov ider Allergies Active Allergy Reactions Criticality Noted Date Comments Penicillins Rash Low 07/18/2021 Beta lactam allergy details Antibiotic reaction: rash Age at reaction: child Dose to reaction time: unknown Reason for antibiotic: unknown Epinephrine required for reaction?: no Tolerated antibiotics: amoxicillin, augmentin Medications Acetaminophen (Tylenol) 325 MG capsule Take 500 mg by mouth Daily As Needed. 5 Active oxyCODONE (ROXICODONE) 5 MG immediate release tablet Take 1 tablet by mouth Every 8 (Eight) Hours As Needed. for pain 5 Active lamoTRIgine (LaMICtal) 25 MG tablet Take 1 tablet by mouth Daily. 5 Active Magic Mouthwash Radonc (nystatin - diphenhydrAMINE HCl - dexamethasone - lidocaine) Swish and swallow 10 mL 4 (Four) Times a Day Before Meals & at Bedtime. 482 mL 1 05/04/2025 4:55 PM EDT 5 Active Active Problems Problem Noted Date Diagnosed Date Carcinoma of lower-inner quadrant of breast, lef t 01/23/2025 Encounters Date Type Department Care Team Description 07/02/2025 3:00 PM EDT Clinical Support [facility] [address] [place] [address] Clarke Beaver, [employer] ADJUSTER Carcinoma of lower-inner quadrant of breast, left (Primary Dx) 07/02/2025 5:55 AM EDT - 07/02/2025 11:59 PM EDT Hospital Encounter [facility] [address] [facility] [address] [place] [address] Discharge Disposition: Home or Self Care 07/02/2025 Telephone [facility] [address] [place] [address] Yasmin Padilla RN 07/02/2025 Travel 06/01/2025 11:13 AM EDT - 06/01/2025 11:59 PM EDT Hospital Encounter [facility] [address] [facility] [address] [place] [address] Discharge Disposition: Home or Self Care 05/31/2025 10:58 AM EDT - 05/31/2025 11:59 PM EDT Hospital Encounter [facility] [address] [facility] [address] [place] [address] Discharge Disposition: Home or Self Care 05/30/2025 10:44 AM EDT - 05/30/2025 11:59 PM EDT Hospital Encounter [facility] [address] [facility] [address] [place] [address] Discharge Disposition: Home or Self Care from Last 3 Months Immunizations Immunization Administration Dates Next Due Hep B, Adolescent or Pediatric 03/15/2001,1999,08/05/2000 Tdap 01/02/2025 Family History Medical History Relation Name Comments Breast cancer Maternal Grandmother Thyroid cancer Maternal Uncle Breast cancer Mother Breast cancer Sister 1 Breast cancer Sister 2 Relation Name Status Comments Maternal Grandmother Maternal Uncle Mother Sister 1 Sister 2 Alive Social History Tobacco Use Types Packs/Day Years Used Date Smoking Tobacco: Never Smokeless Tobacco: Never Tobacco Cessation:Counseling Given: Not Answered Alcohol Use Standard Drinks/Week Comments Never 0 [...] or training? Not on file Preferred Language Croatian 01/19/2025 PHQ-2 Answer Date Recorded Patient Health Questionnaire-9 Score 2 01/31/2025 Comments No Sex and Gender Information Value Date Recorded Sex Assigned at Not on file Legal Sex Female 12:33 PM EDT Gender Identity Not on file Sexual Orientation Not on file Last Filed Vital Signs Vital Sign Reading Time Taken Comments Blood Pressure 103/72 03/02/2025 9:52 AM EDT Pulse 77 03/02/2025 9:52 AM EDT Temperature 36.8 C (98.2 F) 03/02/2025 9:52 AM EDT Respiratory Rate 14 03/02/2025 9:52 AM EDT Oxygen Saturation 100% 03/02/2025 9:52 AM EDT Inhaled Oxygen Concentration - - Weight 83.9 kg (185 lb) 05/29/2025 11:00 AM EDT Height 162.6 cm (5' 4.02 ) 03/02/2025 9:52 AM ED T Body Mass Index 31.74 03/02/2025 9:52 AM EDT Plan of Treatment Upcoming Encounters Date Type Department Care Team (Late st Contact Info) Description 09/06/2025 2:45 PM EDT Office Visit [facility] [address] [facility] [address] [place] [address] Donna Levy MD [address] [facility] [address] [place] [id number] 07/04/2026 11:30 AM EDT Office Visit [facility] [address] [facility] [phone] Clarke Beaver, [employer] ADJUSTER [address] [place] [address] Health Maintenance Due Date Last Done Comments Annual Gynecologic Pelvic an d Breast Exam 1988 Pneumococcal Vaccine 0-49 (1 of 2 - PCV) 2007 PAP SMEAR 2009 ANNUAL PHYSICAL 11/10/2024 HEPATITIS C SCREENING 11/10/2024 PT PLAN OF CARE 06/05/2025 03/07/2025, 12/20/2024 INFLUENZA VACCINE 06/15/2025 Annual Breast MRI 07/02/2026 07/02/2025, , 05/08/2025, Additional history exists MAMMOGRAM TCS >= 20 07/02/2026 07/02/2025, 05/29/2025, 05/08/2025, Additional history exists TDAP/TD VACCINES (2 - Td or Tdap) 01/02/2035 025 Medical Devices Implanted Type Area Inside Sales Device Identifier Shelf Expiration Date Model / Serial / Lot Seal Hemo Surg Palma/Ah Abs/Pwdr 3gm - [id number] Implanted:Qty : 1 on 01/23/2025 by Donna [facility] at [facility] Implant Left: Breast [employer] [id number] 08/12/2029 [id number] / / [id number] Procedures Procedure Name Priority Date/Time Associated Diagnosis Comments RAD ONC ARIA COURSE COMPLETE Routine 07/31/2025 1:44 PM EDT RAD ONC ARIA SESSION SUMMARY Routine 06/01/2025 11:41 AM EDT RAD ONC ARIA SESSION SUMMARY Routine 05/31/2025 11:19 AM EDT RAD ONC ARIA SESSION SUMMARY Routine 05/30/2025 11:15 AM EDT MRI BREAST BILATERAL DIAGNOSTIC W WO CONTRAST STAT 12/22/2024 12:19 PM EST Ductal carcinoma of left breast MAMMO DIAGNOSTIC DIGITAL TOMOSYNTHESIS BILATERAL W CAD Routine 11/21/2024 10:17 AM EST Mass of breast, unspecified laterality from Last 3 Months or Most Recently Relevant to Health Maintenance Results * Rad Onc Aria Course Complete (07/31/2025 1:44 PM EDT) Course ID 1 ARIA RADIATION ONCOLOGY Course Intent Curative ARIA RADIATION ONCOLOGY Course Start Date 03/23/2025 9:34 AM [facility] RAD[facility]ATION ONCOLOGY Course End Date 07/31/2025 1:44 PM [facility] RADIATION ONCOLOGY Course First Treatment Date 04/24/2025 11:19 AM [facility] RAD[facility]ATION ONCOLOGY Course Last Treatment Date 06/01/2025 11:40 AM [facility] RADIATION ONCOLOGY Course Elapsed Days 38 [facility] RADIATION ONCOLOGY Reference Point ID Lt CW DIBH ARIA RADIATION ONCOLOGY Reference Point Dosage Given to Date 50 Gy ARIA RADIATION ONCOLOGY Reference Point ID Lt Sclv DIBH ARIA RADIATION ONCOLOGY Reference Point Dosage Given to Date 50 Gy ARIA RADIATION ONCOLOGY Plan ID Lt CW DIBH [facility] RADIATION ONCOLOGY Plan Name Lt CW DIBH ARIA RADIATION ONCOLOGY Plan Fractions Treated to Date 25 ARIA RADIATION ONCOLOGY Plan Total Fractions Prescribed 25 ARIA RADIATION ONCOLOGY Plan Prescribed Dose Per Fraction 2 Gy ARIA RADIATION ONCOLOGY Plan Total Prescribed Dose 5,000 cGy [facility]A RADIATION ONCOLOGY Plan Primary Reference Point Lt CW DIBH ARIA RADIATION ONCOLOGY Plan ID Lt Sclv DIBH ARIA RADIATION ONCOLOGY Plan Name Lt Sclv DIBH ARIA RADIATION ONCOLOGY Plan Fractions Treated to Date 25 ARIA RADIATION ONCOLOGY Plan Total Fractions Prescribed 25 ARIA RADIATION ONCOLOGY Plan Prescribed Dose Per Fraction 2 Gy ARIA RADIATION ONCOLOGY Plan Total Prescribed Dose 5,000 cGy ARIA RADIATION ONCOLOGY Plan Primary Reference Point Lt Sclv DIBH ARIA RADIATION ONCOLOGY 07/31/2025 1:44 PM EDT us No Known Provider RADIATION ONCOLOGY ORDERABLES Final Result ARIA RADIATION ONCOLOGY * Rad Onc Aria Session Summary (06/01/2025 11:41 AM EDT) Course ID 1 ARIA RADIATION ONCOLOGY Course Intent Curative ARIA RADIATION ONCOLOGY Course Start Date 03/23/2025 9:34 AM [facility] RADIATION ONCOLOG[facility] Course First Treatment Date 04/24/2025 11:19 AM [facility] RADIATION ONCOLOGY Course Last Treatment Date 06/01/2025 11:40 AM [facility] RADIATION ONCOLOGY Course Elapsed Days 38 ARIA RADIATION ONCOLOGY Reference Point ID Lt CW DIBH ARIA RADIATION ONCOLOGY Reference Point Dosage Given to Date 50 Gy [facility]A RADIATION ONCOLOGY Reference Point Session Dosage Given 2 Gy [facility]A RADIATION ONCOLOGY Reference Point ID Lt Sclv DIBH ARIA RADIATION ONCOLOGY Reference Point Dosage Given to Date 50 Gy [facility]A RADIATION ONCOLOGY Reference Point Session Dosage Given 2 Gy [facility]A RADIATION ONCOLOGY Plan ID Lt CW DIBH [facility]A RADIATION ONCOLOGY Plan Name Left Chestwall_RN I DIBH Final ARIA RADIATION ONCOLOGY Plan Fractions Treated to Date 25 ARIA RADIATION ONCOLOGY Plan Total Fractions Prescribed 25 ARIA RADIATION ONCOLOGY Plan Prescribed Dose Per Fraction 2 Gy ARIA RADIATION ONCOLOGY Plan Total Prescribed Dose 5,000 cGy [facility]A RADIATION ONCOLOGY Plan Primary Reference Point Lt CW DIBH ARIA RADIATION ONCOLOGY Plan ID Lt Sclv DIBH ARIA RADIATION ONCOLOGY Plan Name Left Chestwall_RN I DIBH Final ARIA RADIATION ONCOLOGY Plan Fractions Treated to Date 25 ARIA RADIATION ONCOLOGY Plan Total Fractions Prescribed 25 ARIA RADIATION ONCOLOGY Plan Prescribed Dose Per Fraction 2 Gy ARIA RADIATION ONCOLOGY Plan Total Prescribed Dose 5,000 cGy [facility]A RADIATION ONCOLOGY Plan Primary Reference Point Lt Sclv DIBH ARIA RADIATION ONCOLOGY 06/01/2025 11:4 1 AM EDT us No Known Provider RADIATION ONCOLOGY ORDERABLES Final Result ARIA RADIATION ONCOLOGY * Rad Onc Aria Session Summary (05/31/2025 11:19 AM EDT) Course ID 1 ARIA RADIATION ONCOLOGY Course Intent Curative ARIA RADIATION ONCOLOGY Course Start Date 03/23/2025 9:34 AM [facility] RADIATION ONCOLOGY Course First Treatment Date 04/24/2025 11:19 AM [facility] RADIATION ONCOLOGY Course Last Treatment Date 05/31/2025 11:17 AM [facility] RADIATION ONCOLOGY Course Elapsed Days 37 [facility] RADIATION ONCOLOGY Reference Point ID Lt CW DIBH [facility] RADIATION ONCOLOGY Reference Point Dosage Given to Date 48 Gy [facility]A RADIATION ONCOLOGY Reference Point Session Dosage Given 2 Gy [facility]A RADIATION ONCOLOGY Reference Point ID Lt Sclv DIBH ARIA RADIATION ONCOLOGY Reference Point Dosage Given to Date 48 Gy [facility]A RADIATION ONCOLOGY Reference Point Session Dosage Given 2 Gy [facility]A RADIATION ONCOLOGY Plan ID Lt CW DIBH [facility]A RADIATION ONCOLOGY Plan Name Left Chestwall_RN I DIBH Final ARIA RADIATION ONCOLOGY Plan Fractions Treated to Date 24 [facility]A RADIATION ONCOLOGY Plan Total Fractions Prescribed 25 [facility]A RADIATION ONCOLOGY Plan Prescribed Dose Per Fraction 2 Gy ARIA RADIATION ONCOLOGY Plan Total Prescribed Dose 5,000 cGy ARIA RADIATION ONCOLOGY Plan Primary Reference Point Lt CW DIBH ARIA RADIATION ONCOLOGY Plan ID Lt Sclv DIBH ARIA RADIATION ONCOLOGY Plan Name Left Chestwall_RN I DIBH Final ARIA RADIATION ONCOLOGY Plan Fractions Treated to Date 24 ARIA RADIATION ONCOLOGY Plan Total Fractions Prescribed 25 ARIA RADIATION ONCOLOGY Plan Prescribed Dose Per Fraction 2 Gy ARIA RADIATION ONCOLOGY Plan Total Prescribed Dose 5,000 cGy ARIA RADIATION ONCOLOGY Plan Primary Reference Point Lt Sclv DIBH ARIA RADIATION ONCOLOGY 05/31/2025 11:1 9 AM EDT us No Known Provider RADIATION ONCOLOGY ORDERABLES Final Result ARIA RADIATION ONCOLOGY * Rad Onc Aria Session Summary (05/30/2025 11:15 AM EDT) Course ID 1 ARIA RADIATION ONCOLOGY Course Intent Curative ARIA RADIATION ONCOLOGY Course Start Date 03/23/2025 9:34 AM [facility]A RADIATION ONCOLOGY Course First Treatment Date 04/24/2025 11:19 AM [facility]A RADIATION ONCOLOGY Course Last Treatment Date 05/30/2025 11:13 AM ARIA RADIATION ONCOLOGY Course Elapsed Days 36 [facility] RADIATION ONCOLOGY Reference Point ID Lt CW DIBH ARIA RADIATION ONCOLOGY Reference Point Dosage Given to Date 46 Gy ARIA RADIATION ONCOLOGY Reference Point Session Dosage Given 2 Gy ARIA RADIATION ONCOLOGY Reference Point ID Lt Sclv DIBH ARIA RADIATION ONCOLOGY Reference Point Dosage Given to Date 46 Gy ARIA RADIATION ONCOLOGY Reference Point Session Dosage Given 2 Gy ARIA RADIATION ONCOLOGY Plan ID Lt CW DIBH ARIA RADIATION ONCOLOGY Plan Name Left Chestwall_RN I DIBH Final ARIA RADIATION ONCOLOGY Plan Fractions Treated to Date 23 ARIA RADIATION ONCOLOGY Plan Total Fractions Prescribed 25 ARIA RADIATION ONCOLOGY Plan Prescribed Dose Per Fraction 2 Gy ARIA RADIATION ONCOLOGY Plan Total Prescribed Dose 5,000 cGy ARIA RADIATION ONCOLOGY Plan Primary Reference Point Lt CW DIBH ARIA RADIATION ONCOLOGY Plan ID Lt Sclv DIBH ARIA RADIATION ONCOLOGY Plan Name Left Chestwall_RN I DIBH Final ARIA RADIATION ONCOLOGY Plan Fractions Treated to Date 23 ARIA RADIATION ONCOLOGY Plan Total Fractions Prescribed 25 ARIA RADIATION ONCOLOGY Plan Prescribed Dose Per Fraction 2 Gy ARIA RADIATION ONCOLOGY Plan Total Prescribed Dose 5,000 cGy ARIA RADIATION ONCOLOGY Plan Primary Reference Point Lt Sclv DIBH ARIA RADIATION ONCOLOGY 05/30/2025 11:1 5 AM EDT us No Known Provider RADIATION ONCOLOGY ORDERABLES Final Result ARIA RADIATION ONCOLOGY * (ABNORMAL) MRI Breast Bilateral Diagnostic W WO Contrast (12/22/2024 12:19 PM EST) Anatomical Region Laterality Modality Breast Bilateral Magnetic Resonan ce 12/25/2024 1:57 PM EST Impressions 12/25/2024 2:17 PM EST BI-RADS 4, suspicious finding. RECOMMENDATIONS: There is diffuse abnormal segmental non-mass like enhancement occupying the vast majority of the lower inner quadrant with extension into the lower outer quadrant. 1 or 2 site MRI directed biopsy is advised for further evaluation. The 2 previously biopsy-proven invasive ductal carcinoma of at 7:00, 7 to 8 cm from the nipple, and 8:00, 8 to 9 cm from the nipple, respectively are again noted as described above. No abnormal enhancement is noted in the right breast. BI-RADS CATEGORY: BI-RADS 4, suspicious finding. 12/25/2024 2:[address] 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 Operative planning. TECHNIQUE: MRI was performed on a 1.5 Hazel magnet utilizing a 16-channel Briana breast coil. Pre-contrast spin-echo T1 weighted and T2 weighted sequences were obtained in the axial plane. Routine dynamic images were performed following the administration of 16 ml of Multihance contrast. Four postcontrast runs were obtained. No contrast complications occurred. Delayed high resolution post contrast T1 weighted sagittal images were also obtained. A CAD system ([employer]) was utilized for data analysis. COMPARISON: Prior breast MRI dated 08/14/2021. Prior left breast diagnostic mammogram and ultrasound guided core biopsies as well as stereotactic core biopsy dated 11/21/2024 and 12/04/2024 respectively. FINDINGS: Contrast is noted in the heart and great vessels. Heterogeneous breast tissue is noted bilaterally. Moderate to marked background parenchymal enhancement is noted bilaterally. Signal void artifact is noted at approximately 3:00 of the left breast, middle one third depth, at the site of the prior benign left breast stereotactic core biopsy performed on 12/04/2024. At 7:00, 7 to 8 cm from the nipple, there is a signal void artifact with surrounding abnormal masslike enhancement which collectively measures 11 mm from anterior to posterior, 10 mm from medial to lateral, and 12 mm from superior to inferior. This is consistent with the biopsy-proven invasive ductal carcinoma. This is located 2.4 cm deep to the medial skin surface and 5.2 cm deep to the lateral skin surface. At 8:00, 8 to 9 cm from the nipple, there is an additional signal void artifact with abnormal surrounding masslike enhancement which measures 9 mm from anterior to posterior, 6 mm from medial to lateral, and 10 mm from superior to inferior. This is located 2.9 cm from the medial skin surface and 5.9 cm from the lateral skin surface. There is abnormal segmental lup-kyev-vzji enhancement in the lower inner quadrant beginning at 1 cm deep to the nipple and extending posteriorly for 11 cm. This occupies the vast majority of the lower inner quadrant and extends into the lower outer quadrant. No abnormal masslike nor ubt-yzkh-wrrk enhancement is noted in the right breast. No abnormal axillary nor internal mammary adenopathy is noted bilaterally. us Cole Hudson MD IMG MRI ORDERABLES Final Res ult * (ABNORMAL) Mammo Diagnostic Digital Tomosynthesis Bilateral With CAD (11/21/2024 10:17 AM EST) Anatomical Region Laterality Modality Breast Bilateral Mammography 11/21/2024 12:4 8 PM EST Impressions 11/21/2024 1:11 PM EST 1. Suspicious oval masses with irregular margins in the posterior aspect of the left 7:00 and 7:30-8:00 positions, as described above. 2. Suspicious grouped calcifications in the left upper outer quadrant. 3. No evidence of left axillary lymphadenopathy on focused ultrasound imaging. 4. No findings suspicious for malignancy on right mammographic imaging. RECOMMENDATION: 1. Ultrasound-guided core biopsy of suspicious masses in the 7:00 and 7:30 positions. 2. Tomosynthesis/stereotactic core biopsy of grouped calcifications in the left upper outer quadrant. 3. The patient is a candidate for annual high risk screening breast MRI imaging based on the results of the Tyrer-Cuzick risk assessment model. She has a 39.1% estimated lifetime risk for developing breast cancer. BI-RADS CATEGORY: 5, HIGHLY SUGGESTIVE OF MALIGNANCY. CAD was utilized. The standard false-negative rate of mammography is between 10% and 25%. Complex patterns or increased breast density will markedly elevate the false-negative rate of mammography. A letter, in lay terminology, with the results of this exam was given to the patient at the time of the visit. PHYSICIAN ORDER: ULTRASOUND GUIDED BREAST BIOPSY DIAGNOSIS: ABNORMAL ULTRASOUND FINDING PHYSICIANS ORDER: STEREOTACTIC/TOMOSYNTHESIS GUIDED BREAST BIOPSY DIAGNOSIS: ABNORMAL MAMMOGRAM This report was finalized on 11/21/2024 1:[address] Rosemary Chambers MD. Narrative 11/21/2024 1:11 PM EST BILATERAL DIAGNOSTIC MAMMOGRAM, LEFT BREAST ULTRASOUND, LEFT AXILLARY ULTRASOUND HISTORY: 34-year-old patient who presents for a second opinion regarding suspicious masses in the left breast noted on outside mammographic and ultrasound imaging performed at [facility]. The patient has no personal history of breast cancer. Her mother, two sisters, and maternal grandmother were diagnosed with breast cancer. The Tyrer-Cuzick risk assessment model revealed that the patient has a 39.1% estimated lifetime risk for developing breast cancer. She is considered high risk according to this model. The patient has lost 13 pounds since her prior mammogram. TECHNIQUE: Bilateral low dose, full field digital CC and MLO views were obtained with tomosynthesis. Left CC and ML magnification views, left CC and MLO focal compression views with tomosynthesis, and a left ML view with tomosynthesis were also obtained. Focused ultrasound imaging was performed of the left lower inner quadrant and left axilla. The patient was scanned by the technologist and the radiologist. COMPARISON: [facility] mammographic and ultrasound studies dated 10/13/2024, 12/28/2023, 09/03/2022, 07/13/2022, 06/26/2021, 06/05/2021, 02/29/2020, 02/14/2020, 06/28/2019, 11/18/2018, and 10/08/2017. FINDINGS: The breast tissue is heterogeneously dense, which may obscure small masses. RIGHT BREAST The fibroglandular pattern is stable. There are no suspicious masses, worrisome calcifications, areas of architectural distortion, or other secondary signs of malignancy. LEFT BREAST There is a 1.5 cm oval mass with irregular margins in the posterior aspect of the lower inner quadrant. There is also an adjacent 0.9 cm oval mass with irregular margins located more posteriorly in the lower inner quadrant. These findings are suspicious for malignancy. Nodular asymmetries are noted in the anterior aspect of the 2:00-3:00 region. These asymmetries are best visualized on MLO and ML tomosynthesis imaging. Focused ultrasound imaging will be performed for further evaluation. Magnification imaging of the upper outer quadrant demonstrates multiple groups of amorphous calcifications. Core biopsy of the dominant group of calcifications is recommended. Focused ultrasound imaging of the left lower inner quadrant demonstrates a 1.5 cm oval, hypoechoic mass with irregular margins in the 7 o'clock position, 7-8 cm from the nipple, and a 0.9 cm oval, hypoechoic mass with irregular margins in the 7:30-8:00 position, 8-9 cm from the nipple. These findings correspond to the suspicious masses noted on mammographic imaging. Ultrasound-guided core biopsy is recommended for both masses. Focused ultrasound imaging of the lateral periareolar region demonstrates cysts that correspond to nodular asymmetries noted on mammographic imaging. Focused ultrasound imaging of the left axilla demonstrates unremarkable lymph nodes. There is no evidence of cortical thickening or hilar effacement. Rosemary Chambers MD IMG MAMMOGRAPHY ORDERABLES Fin al Result from Last 3 Months or Most Recently Relevant to Health Maintenance Insurance [facility] Member Subscriber Plan / Payer (Ef fective 2025-Present) Name:Opal Noel Member ID:[id number] Relation to Subscriber:Self Name:Opal Noel Subscriber ID:[id number] Payer ID:[id number] (NAIC) Type:Not on file Address: [facility] [id number], [place] [id number] [place] [address] Advance Directives * CPR (Attempt to Resuscitate) (Latest Code Status on File) Date Activated Date Inactivated Comments 01/23/2025 3:53 PM 01/24/2025 12:41 PM Question Answer Comments Code Status (Patient has no pulse and is not breathing): CPR (Attempt to Resuscitate) Medical Interventions (Patie nt has pulse or is breathing): Full Support Care Teams Tube Former Operator Relationship Specialty Start Date End Date Jr José Caballero APRN [address] [place] [address] PCP - General Nurse Practitioner 01/08/25
[2025-09-04 12:15] LABS: Atopobium vaginae NOTORDERABLE Low - 0 Score (.); BVAB2 Low - 0 Score (.); Candida albicans NAA Negative (Negative); Candida glabrata Negative (Negative); HSV 1 NAA Negative (Negative); HSV 2 NAA Negative (Negative)
== END 2025-08-29 23:59 | disposition home or self-care (01) ==
LOC: LAB.DROPOF 08-30 09:14
PROVIDERS: PCP Obstetrics & Gynecology; Visit Provider Obstetrics & Gynecology
DX: R10.20 Pelvic and perineal pain unspecified side (principal); R39.15 Urgency of urination
CPT/HCPCS: 87086; 87491; 87529; 87591; 87661; 87798; 87801